=== PATIENT | male | born 1960 | race Native Hawaiian/Other Pacific Islander ===

== ENCOUNTER 2016-11-02 11:03 | Inpatient (IN) | payer OTHER | END 2016-11-22 12:32 | disposition still patient (30) | LOC: PAVC 11:03 | PROVIDERS: ADMIT Internal Medicine | DX: Z51.89 Encounter for other specified aftercare (principal) ==

== ENCOUNTER 2016-11-02 17:30 | Outpatient (CLI) | payer OTHER | END 2016-11-02 21:29 | disposition home or self-care (01) | LOC: LAB 17:30 | DX: R39.198 Other difficulties with micturition (principal) | CPT/HCPCS: 81000; 87077; 87086; 87088; 87186 ==

== ENCOUNTER 2016-11-06 15:25 | Outpatient (CLI) | payer OTHER | END 2016-11-06 22:11 | disposition home or self-care (01) | LOC: US 15:25 | DX: I63.8 Other cerebral infarction (principal) ==

== ENCOUNTER 2016-11-07 17:45 | Outpatient (CLI) | payer OTHER | END 2016-11-07 23:02 | disposition home or self-care (01) | LOC: CT 17:45 | DX: I65.22 Occlusion and stenosis of left carotid artery (principal) | CPT/HCPCS: Q9963 ==

== ENCOUNTER 2016-11-22 12:44 | Inpatient (IN) | payer OTHER | END 2016-12-20 13:19 | disposition still patient (30) | LOC: PAVC 12:44 | PROVIDERS: ADMIT Internal Medicine | DX: Z51.89 Encounter for other specified aftercare (principal) ==

== ENCOUNTER 2016-12-20 13:28 | Inpatient (IN) | payer OTHER | END 2017-01-20 08:12 | disposition still patient (30) | LOC: PAVC 13:28 | PROVIDERS: ADMIT Internal Medicine | DX: Z51.89 Encounter for other specified aftercare (principal) ==

== ENCOUNTER 2017-01-20 08:30 | Inpatient (IN) | payer OTHER | END 2017-02-19 10:55 | disposition still patient (30) | LOC: PAVC 08:30 | PROVIDERS: ADMIT Internal Medicine | DX: Z51.89 Encounter for other specified aftercare (principal) ==

== ENCOUNTER 2017-02-18 12:55 | Outpatient (CLI) | payer OTHER | END 2017-02-18 19:48 | disposition home or self-care (01) | LOC: LAB 12:55 | DX: Z16.24 Resistance to multiple antibiotics (principal) | CPT/HCPCS: 87081 ==

== ENCOUNTER 2017-02-19 11:14 | Inpatient (IN) | payer OTHER | END 2017-03-22 10:44 | disposition still patient (30) | LOC: PAVC 11:14 | PROVIDERS: ADMIT Internal Medicine | DX: Z51.89 Encounter for other specified aftercare (principal) ==

== ENCOUNTER 2017-03-22 10:51 | Inpatient (IN) | payer OTHER | END 2017-04-21 16:07 | disposition still patient (30) | LOC: PAVC 10:51 | PROVIDERS: ADMIT Internal Medicine | DX: Z51.89 Encounter for other specified aftercare (principal) ==

== ENCOUNTER 2017-04-21 16:24 | Inpatient (IN) | payer OTHER | END 2017-05-22 12:56 | disposition still patient (30) | LOC: PAVC 16:24 | PROVIDERS: ADMIT Internal Medicine | DX: Z51.89 Encounter for other specified aftercare (principal) ==

== ENCOUNTER 2017-04-23 03:18 | Outpatient (CLI) | payer OTHER ==
[2017-04-23 04:02] LABS: PLATELET COUNT 271 K/uL (142-355)
[2017-04-23 04:30] LABS: POTASSIUM 4.1 mmol/L (3.6-5.2); SODIUM 139 mmol/L (136-145)
== END 2017-04-23 04:20 | disposition home or self-care (01) ==
LOC: LAB 03:18
PROVIDERS: Internal Medicine
DX: I10 Essential (primary) hypertension (principal); E78.4 Other hyperlipidemia; I69.351 Hemiplegia and hemiparesis following cerebral infarction affecting right dominant side
CPT/HCPCS: 36415; 80053; 85027

== ENCOUNTER 2017-05-22 13:56 | Inpatient (IN) | payer OTHER | END 2017-06-22 09:41 | disposition still patient (30) | LOC: PAVC 13:56 | PROVIDERS: ADMIT Internal Medicine | DX: Z51.89 Encounter for other specified aftercare (principal) ==

== ENCOUNTER 2017-06-22 10:14 | Inpatient (IN) | payer OTHER | END 2017-07-22 09:35 | disposition still patient (30) | LOC: PAVC 10:14 | PROVIDERS: ADMIT Internal Medicine | DX: Z51.89 Encounter for other specified aftercare (principal) ==

== ENCOUNTER 2017-07-22 09:50 | Inpatient (IN) | payer OTHER | END 2017-08-22 14:18 | disposition still patient (30) | LOC: PAVC 09:50 | PROVIDERS: ADMIT Internal Medicine ==

== ENCOUNTER 2017-08-22 14:29 | Inpatient (IN) | payer OTHER | END 2017-09-21 10:28 | disposition still patient (30) | LOC: PAVC 14:29 | PROVIDERS: ADMIT Internal Medicine ==

== ENCOUNTER 2017-09-21 10:37 | Inpatient (IN) | payer OTHER | END 2017-10-22 10:55 | disposition still patient (30) | LOC: PAVC 10:37 | PROVIDERS: ADMIT Internal Medicine ==

== ENCOUNTER 2017-10-22 11:35 | Inpatient (IN) | payer OTHER | END 2017-11-22 11:11 | disposition still patient (30) | LOC: PAVC 11:35 | PROVIDERS: ADMIT Internal Medicine ==

== ENCOUNTER 2017-10-23 05:06 | Outpatient (CLI) | payer OTHER ==
[2017-10-23 06:15] LABS: PLATELET COUNT 252 K/uL (142-355)
[2017-10-23 06:39] LABS: POTASSIUM 3.6 mmol/L (3.6-5.2); SODIUM 135 mmol/L (136-145)
== END 2017-10-23 20:23 | disposition home or self-care (01) ==
LOC: LAB 05:06
PROVIDERS: Internal Medicine
DX: I10 Essential (primary) hypertension (principal); E78.4 Other hyperlipidemia; K21.9 Gastro-esophageal reflux disease without esophagitis
CPT/HCPCS: 36415; 80053; 80061; 85027

== ENCOUNTER 2017-11-22 12:19 | Inpatient (IN) | payer OTHER | END 2017-12-20 10:36 | disposition still patient (30) | LOC: PAVC 12:19 | PROVIDERS: ADMIT Internal Medicine ==

== ENCOUNTER 2017-12-20 10:46 | Inpatient (IN) | payer OTHER | END 2018-01-20 08:00 | disposition still patient (30) | LOC: PAVC 10:46 | PROVIDERS: ADMIT Internal Medicine ==

== ENCOUNTER 2018-01-20 09:00 | Inpatient (IN) | payer OTHER | END 2018-02-19 10:26 | disposition still patient (30) | LOC: PAVC 09:00 | PROVIDERS: ADMIT Internal Medicine ==

== ENCOUNTER 2018-02-19 10:37 | Inpatient (IN) | payer OTHER | END 2018-03-22 10:22 | disposition still patient (30) | LOC: PAVC 10:37 | PROVIDERS: ADMIT Internal Medicine ==

== ENCOUNTER 2018-03-22 10:40 | Inpatient (IN) | payer OTHER | END 2018-04-21 15:04 | disposition still patient (30) | LOC: PAVC 10:40 | PROVIDERS: ADMIT Internal Medicine ==

== ENCOUNTER 2018-03-22 11:15 | Outpatient (CLI) | payer OTHER | END 2018-03-22 19:26 | disposition home or self-care (01) | LOC: RAD 11:15 | DX: R13.19 Other dysphagia (principal) ==

== ENCOUNTER 2018-04-21 15:22 | Inpatient (IN) | payer OTHER | END 2018-05-22 08:00 | disposition still patient (30) | LOC: PAVC 15:22 | PROVIDERS: ADMIT Internal Medicine ==

== ENCOUNTER 2018-04-22 04:59 | Outpatient (CLI) | payer OTHER ==
[2018-04-22 06:14] LABS: PLATELET COUNT 264 K/uL (142-355)
[2018-04-22 06:28] LABS: POTASSIUM 3.8 mmol/L (3.6-5.2)
== END 2018-04-22 19:39 | disposition home or self-care (01) ==
LOC: LAB 04:59
PROVIDERS: Internal Medicine
DX: I10 Essential (primary) hypertension (principal); K21.9 Gastro-esophageal reflux disease without esophagitis
CPT/HCPCS: 36415; 80053; 85027

== ENCOUNTER 2018-05-22 09:00 | Inpatient (IN) | payer OTHER | END 2018-06-22 11:10 | disposition still patient (30) | LOC: PAVC 09:00 | PROVIDERS: ADMIT Internal Medicine ==

== ENCOUNTER 2018-06-22 11:25 | Inpatient (IN) | payer OTHER | END 2018-07-22 14:31 | disposition still patient (30) | LOC: PAVC 11:25 | PROVIDERS: ADMIT Internal Medicine ==

== ENCOUNTER 2018-07-22 15:18 | Inpatient (IN) | payer OTHER | END 2018-08-22 10:30 | disposition still patient (30) | LOC: PAVC 15:18 | PROVIDERS: ADMIT Internal Medicine ==

== ENCOUNTER 2018-08-22 11:04 | Inpatient (IN) | payer OTHER | END 2018-09-21 07:19 | disposition still patient (30) | LOC: PAVC 11:04 | PROVIDERS: ADMIT Internal Medicine ==

== ENCOUNTER 2018-09-21 07:27 | Inpatient (IN) | payer OTHER | END 2018-10-22 09:35 | disposition still patient (30) | LOC: PAVC 07:27 | PROVIDERS: ADMIT Internal Medicine ==

== ENCOUNTER 2018-10-22 09:45 | Inpatient (IN) | payer OTHER | END 2018-11-22 09:35 | disposition still patient (30) | LOC: PAVC 09:45 | PROVIDERS: ADMIT Internal Medicine ==

== ENCOUNTER 2018-10-24 04:12 | Outpatient (CLI) | payer OTHER ==
[2018-10-24 07:48] LABS: PLATELET COUNT 262 K/uL (142-355)
[2018-10-24 08:06] LABS: POTASSIUM 3.9 mmol/L (3.6-5.2)
== END 2018-10-24 22:28 | disposition home or self-care (01) ==
LOC: LAB 04:12
PROVIDERS: Internal Medicine
DX: D64.9 Anemia, unspecified (principal); E78.5 Hyperlipidemia, unspecified
CPT/HCPCS: 80053; 80061; 85027

== ENCOUNTER 2018-11-22 09:47 | Inpatient (IN) | payer OTHER | END 2018-12-20 12:10 | disposition still patient (30) | LOC: PAVC 09:47 | PROVIDERS: ADMIT Internal Medicine ==

== ENCOUNTER 2018-12-20 12:20 | Inpatient (IN) | payer OTHER | END 2019-01-20 12:28 | disposition still patient (30) | LOC: PAVC 12:20 | PROVIDERS: ADMIT Internal Medicine ==

== ENCOUNTER 2019-01-20 12:41 | Inpatient (IN) | payer OTHER | END 2019-02-19 13:41 | disposition still patient (30) | LOC: PAVC 12:41 | PROVIDERS: ADMIT Internal Medicine | CPT/HCPCS: 36415; 80053; 80061; 83735; 84100; 84153; 85027; 87070 ==

== ENCOUNTER 2019-01-20 15:40 | Outpatient (CLI) | payer OTHER ==
[2019-01-20 16:32] LABS: PLATELET COUNT 490 K/uL (142-355)
[2019-01-20 16:34] LABS: POTASSIUM 4.1 mmol/L (3.6-5.2)
== END 2019-01-20 20:31 | disposition home or self-care (01) ==
LOC: LAB 15:40
PROVIDERS: Internal Medicine
DX: Z01.818 Encounter for other preprocedural examination (principal); E46 Unspecified protein-calorie malnutrition
CPT/HCPCS: 80053; 85027

== ENCOUNTER 2019-01-21 16:00 | Inpatient (IN) | payer OTHER ==
[~2019-01-21] VITALS: Ht 175.3 cm; Wt 63.2 kg
[2019-01-21] VITALS (7 sets, daily range): BP systolic 101–130; BP diastolic 64–81; TEMP 98–98.6; Ht 175.3 cm; Wt 63.2 kg
[2019-01-21 19:41] LABS: PLATELET COUNT 452 K/uL (142-355)
[2019-01-22] VITALS (24 sets, daily range): BP systolic 99–130; BP diastolic 56–84; TEMP 98–99.8
[2019-01-22 06:54] LABS: POTASSIUM 3.6 mmol/L (3.6-5.2)
[2019-01-22 08:24] LABS: PLATELET COUNT 451 K/uL (142-355)
[2019-01-23] VITALS (17 sets, daily range): BP systolic 96–128; BP diastolic 60–79; TEMP 97.5–99.8
[2019-01-23 06:51] LABS: PLATELET COUNT 443 K/uL (142-355)
[2019-01-23 07:13] LABS: POTASSIUM 3.7 mmol/L (3.6-5.2)
[2019-01-24] VITALS: BP 116/66; TEMP 98.2
[2019-01-24 04:00] VITALS: BP 93/58; TEMP 97.8
[2019-01-24 08:00] VITALS: BP 121/71; TEMP 98
[2019-01-24 08:51] LABS: PLATELET COUNT 399 K/uL (142-355)
[2019-01-24 09:07] LABS: POTASSIUM 3.8 mmol/L (3.6-5.2)
== END 2019-01-24 11:30 | disposition home or self-care (01) | DRG 178 ==
LOC: ICU 16:00 → MED/SURG 01-23 15:25 → ICU 01-23 15:25 → MED/SURG 01-23 15:25
PROVIDERS: ADMIT Internal Medicine
DX: J69.0 Pneumonitis due to inhalation of food and vomit (principal); I69.351 Hemiplegia and hemiparesis following cerebral infarction affecting right dominant side; R47.1 Dysarthria and anarthria; I10 Essential (primary) hypertension; K21.9 Gastro-esophageal reflux disease without esophagitis; K44.9 Diaphragmatic hernia without obstruction or gangrene; R13.19 Other dysphagia
CPT/HCPCS: 36415; 80048; 80053; 81000; 83605; 83735; 84100; 84478; 85027; 87040; 87077; 87086; 87088; 87186; 93005; 94640; 94664; 94760; J2185; J2543; J3490

== ENCOUNTER → 2019-01-21 | Day surgery (SDC) | payer OTHER ==
[~2019-01-21] VITALS: Ht 30.5 cm; Wt 0.5 kg
== END ==
LOC: OR 07:00
PROC: 0DH63UZ Insertion of Feeding Device into Stomach, Percutaneous Approach (ICD-10-PCS; principal; 2019-01-21)
DX: R13.19 Other dysphagia (principal); I69.391 Dysphagia following cerebral infarction; T17.918A Gastric contents in respiratory tract, part unspecified causing other injury, initial encounter; K44.9 Diaphragmatic hernia without obstruction or gangrene; E46 Unspecified protein-calorie malnutrition; I69.351 Hemiplegia and hemiparesis following cerebral infarction affecting right dominant side
CPT/HCPCS: J2001; J2704; J3490

== ENCOUNTER 2019-01-25 10:41 | Outpatient (CLI) | payer OTHER ==
[2019-01-25 10:53] LABS: PLATELET COUNT 420 K/uL (142-355)
[2019-01-25 11:01] LABS: POTASSIUM 4.5 mmol/L (3.6-5.2)
== END 2019-01-25 19:18 | disposition home or self-care (01) ==
LOC: LAB 10:41
PROVIDERS: Internal Medicine
DX: I69.351 Hemiplegia and hemiparesis following cerebral infarction affecting right dominant side (principal)
CPT/HCPCS: 80053; 83735; 84100; 85027

== ENCOUNTER → 2019-01-27 | Day surgery (SDC) | payer OTHER ==
[2019-01-27 15:50] LABS: PLATELET COUNT 431 K/uL (142-355)
[2019-01-27 16:11] LABS: POTASSIUM 4.3 mmol/L (3.6-5.2)
== END ==
LOC: OR 11:12
PROVIDERS: Internal Medicine
PROC: 02HV33Z Insertion of Infusion Device into Superior Vena Cava, Percutaneous Approach (ICD-10-PCS; principal; 2019-01-27)
DX: R13.19 Other dysphagia (principal); E46 Unspecified protein-calorie malnutrition
CPT/HCPCS: 80053; 80061; 83735; 84100; 85027

== ENCOUNTER 2019-01-28 07:58 | Outpatient (CLI) | payer OTHER ==
[2019-01-28 08:08] LABS: PLATELET COUNT 451 K/uL (142-355)
[2019-01-28 08:34] LABS: POTASSIUM 4.7 mmol/L (3.6-5.2)
== END 2019-01-28 23:17 | disposition home or self-care (01) ==
LOC: LAB 07:58
PROVIDERS: Internal Medicine
DX: R06.09 Other forms of dyspnea (principal); E46 Unspecified protein-calorie malnutrition; Z79.899 Other long term (current) drug therapy
CPT/HCPCS: 80053; 80061; 83735; 84100; 85027

== ENCOUNTER 2019-01-28 13:53 | Outpatient (CLI) | payer OTHER | END 2019-01-28 23:22 | disposition home or self-care (01) | LOC: RAD 13:53 | DX: K63.89 Other specified diseases of intestine (principal) ==

== ENCOUNTER 2019-01-29 08:15 | Outpatient (CLI) | payer OTHER ==
[2019-01-29 08:25] LABS: PLATELET COUNT 504 K/uL (142-355)
[2019-01-29 08:42] LABS: POTASSIUM 4.4 mmol/L (3.6-5.2)
== END 2019-01-29 20:37 | disposition home or self-care (01) ==
LOC: LAB 08:15
PROVIDERS: Internal Medicine
DX: E46 Unspecified protein-calorie malnutrition (principal); R06.09 Other forms of dyspnea; Z79.899 Other long term (current) drug therapy
CPT/HCPCS: 36415; 80053; 80061; 83735; 84100; 85027

== ENCOUNTER 2019-01-31 04:20 | Outpatient (CLI) | payer OTHER ==
[2019-01-31 04:45] LABS: PLATELET COUNT 343 K/uL (142-355)
[2019-01-31 12:22] LABS: POTASSIUM 4.6 mmol/L (3.6-5.2)
== END 2019-01-31 19:46 | disposition home or self-care (01) ==
LOC: LAB 04:20
PROVIDERS: Internal Medicine
DX: E46 Unspecified protein-calorie malnutrition (principal); R06.09 Other forms of dyspnea; Z79.899 Other long term (current) drug therapy; Z12.5 Encounter for screening for malignant neoplasm of prostate
CPT/HCPCS: 80053; 80061; 83735; 84100; 84153; 85027

== ENCOUNTER 2019-02-01 05:11 | Outpatient (CLI) | payer OTHER ==
[2019-02-01 05:23] LABS: PLATELET COUNT 469 K/uL (142-355)
[2019-02-01 05:56] LABS: POTASSIUM 4.9 mmol/L (3.6-5.2)
== END 2019-02-01 19:35 | disposition home or self-care (01) ==
LOC: LAB 05:11
PROVIDERS: Internal Medicine
DX: E46 Unspecified protein-calorie malnutrition (principal); R06.09 Other forms of dyspnea; Z79.899 Other long term (current) drug therapy
CPT/HCPCS: 36415; 80053; 80061; 83735; 84100; 85027

== ENCOUNTER 2019-02-02 05:34 | Outpatient (CLI) | payer OTHER ==
[2019-02-02 05:53] LABS: PLATELET COUNT 561 K/uL (142-355)
[2019-02-02 06:08] LABS: POTASSIUM 4.2 mmol/L (3.6-5.2)
== END 2019-02-02 20:45 | disposition home or self-care (01) ==
LOC: LAB 05:34
PROVIDERS: Internal Medicine
DX: E46 Unspecified protein-calorie malnutrition (principal); R06.09 Other forms of dyspnea; Z79.899 Other long term (current) drug therapy
CPT/HCPCS: 80053; 80061; 83735; 84100; 85027

== ENCOUNTER → 2019-02-03 | Outpatient (CLI) | payer OTHER ==
[2019-02-03 05:55] LABS: PLATELET COUNT 474 K/uL (142-355)
[2019-02-03 06:22] LABS: POTASSIUM 4.2 mmol/L (3.6-5.2)
== END ==
LOC: LAB 04:22
PROVIDERS: Internal Medicine
DX: E46 Unspecified protein-calorie malnutrition (principal); R06.09 Other forms of dyspnea; Z79.899 Other long term (current) drug therapy
CPT/HCPCS: 36415; 80053; 80061; 83735; 84100; 85027

== ENCOUNTER 2019-02-04 04:25 | Outpatient (CLI) | payer OTHER ==
[2019-02-04 05:43] LABS: PLATELET COUNT 480 K/uL (142-355)
[2019-02-04 05:57] LABS: POTASSIUM 3.9 mmol/L (3.6-5.2)
== END 2019-02-04 22:43 | disposition home or self-care (01) ==
LOC: LAB 04:25
PROVIDERS: Internal Medicine
DX: E46 Unspecified protein-calorie malnutrition (principal); R06.09 Other forms of dyspnea; Z79.899 Other long term (current) drug therapy
CPT/HCPCS: 36415; 80053; 80061; 83735; 84100; 85027

== ENCOUNTER 2019-02-04 09:29 | Day surgery (SDC) | payer OTHER | END 2019-02-04 11:36 | LOC: OR 09:29 | PROC: 0DH63UZ Insertion of Feeding Device into Stomach, Percutaneous Approach (ICD-10-PCS; principal; 2019-02-04) | DX: R13.19 Other dysphagia (principal); I69.351 Hemiplegia and hemiparesis following cerebral infarction affecting right dominant side | CPT/HCPCS: J1642; J2001; J2704 ==

== ENCOUNTER 2019-02-10 15:39 | Outpatient (CLI) | payer OTHER | END 2019-02-10 19:43 | disposition home or self-care (01) | LOC: LAB 15:39 | DX: T82.7XXA Infection and inflammatory reaction due to other cardiac and vascular devices, implants and grafts, initial encounter (principal) | CPT/HCPCS: 87070 ==

== ENCOUNTER 2019-02-19 13:54 | Inpatient (IN) | payer OTHER | END 2019-03-22 09:38 | disposition still patient (30) | LOC: PAVC 13:54 | PROVIDERS: ADMIT Internal Medicine | DX: J69.0 Pneumonitis due to inhalation of food and vomit (principal); R13.12 Dysphagia, oropharyngeal phase; I63.442 Cerebral infarction due to embolism of left cerebellar artery; E46 Unspecified protein-calorie malnutrition; I10 Essential (primary) hypertension; I69.922 Dysarthria following unspecified cerebrovascular disease ==

== ENCOUNTER 2019-03-22 09:56 | Inpatient (IN) | payer OTHER | END 2019-04-21 11:34 | disposition still patient (30) | LOC: PAVC 09:56 | PROVIDERS: ADMIT Internal Medicine ==

== ENCOUNTER 2019-04-21 11:57 | Inpatient (IN) | payer OTHER | END 2019-05-22 11:52 | disposition still patient (30) | LOC: PAVC 11:57 | PROVIDERS: ADMIT Internal Medicine ==

== ENCOUNTER 2019-04-25 04:36 | Outpatient (CLI) | payer OTHER ==
[2019-04-25 05:56] LABS: PLATELET COUNT 269 K/uL (142-355)
[2019-04-25 06:07] LABS: POTASSIUM 4.2 mmol/L (3.6-5.2)
== END 2019-04-25 20:39 | disposition home or self-care (01) ==
LOC: LAB 04:36
PROVIDERS: Internal Medicine
DX: E78.2 Mixed hyperlipidemia (principal); K21.9 Gastro-esophageal reflux disease without esophagitis; I10 Essential (primary) hypertension
CPT/HCPCS: 80053; 85027

== ENCOUNTER 2019-05-01 14:23 | Outpatient (CLI) | payer OTHER | END 2019-05-01 23:50 | disposition home or self-care (01) | LOC: RAD 14:23 | DX: J98.8 Other specified respiratory disorders (principal) ==

== ENCOUNTER 2019-05-22 12:58 | Inpatient (IN) | payer OTHER | END 2019-06-22 17:15 | disposition still patient (30) | LOC: PAVC 12:58 | PROVIDERS: ADMIT Internal Medicine ==

== ENCOUNTER 2019-05-27 19:52 | Outpatient (CLI) | payer OTHER | END 2019-05-27 23:21 | disposition home or self-care (01) | LOC: LAB 19:52 | DX: N39.0 Urinary tract infection, site not specified (principal) | CPT/HCPCS: 81000; 87077; 87086; 87088; 87186 ==

== ENCOUNTER 2019-06-05 16:11 | Outpatient (CLI) | payer OTHER | END 2019-06-05 23:59 | LOC: RAD 16:11 | DX: R09.02 Hypoxemia (principal) ==

== ENCOUNTER 2019-06-10 13:42 | Outpatient (CLI) | payer OTHER | END 2019-06-10 23:59 | LOC: LAB 13:42 | DX: N39.0 Urinary tract infection, site not specified (principal); Z79.2 Long term (current) use of antibiotics | CPT/HCPCS: 81000; 87077; 87086; 87088; 87186 ==

== ENCOUNTER 2019-06-22 17:32 | Inpatient (IN) | payer OTHER | END 2019-07-22 12:55 | disposition still patient (30) | LOC: PAVC 17:32 | PROVIDERS: ADMIT Internal Medicine ==

== ENCOUNTER 2019-07-10 15:21 | Outpatient (CLI) | payer OTHER | END 2019-07-10 19:55 | disposition home or self-care (01) | LOC: LAB 15:21 | DX: R82.998 Other abnormal findings in urine (principal); N39.0 Urinary tract infection, site not specified | CPT/HCPCS: 81000; 87077; 87086; 87088; 87186 ==

== ENCOUNTER 2019-07-22 13:21 | Inpatient (IN) | payer OTHER ==
[2019-08-13] MEDS ORDERED: MULTIVITAMI1 PEG (13:09)
[2019-08-13] MEDS ORDERED: VITAMIN C1000 MG PEG (13:09)
[2019-08-13] MEDS ORDERED: ALLEGRA ALRG180 M1 PEG (13:11)
[2019-08-13] MEDS ORDERED: SCOP1.5D TD (13:12)
[2019-08-13] MEDS ORDERED: TYLENOL325 MG PEG (13:14)
[2019-08-13] MEDS ORDERED: ONDA2INJ2 IM (13:15)
[2019-08-13] MEDS ORDERED: ALBUSOL INH (13:16)
== END 2019-08-22 14:04 | disposition still patient (30) ==
LOC: PAVC 13:21
PROVIDERS: ADMIT Internal Medicine
DX: J18.0 Bronchopneumonia, unspecified organism (principal); I69.359 Hemiplegia and hemiparesis following cerebral infarction affecting unspecified side; R13.12 Dysphagia, oropharyngeal phase; Z93.1 Gastrostomy status; I10 Essential (primary) hypertension; M12.9 Arthropathy, unspecified; K21.9 Gastro-esophageal reflux disease without esophagitis
CPT/HCPCS: 36415; 80202; 83880

== ENCOUNTER 2019-08-08 14:36 | Outpatient (CLI) | payer OTHER | END 2019-08-08 21:31 | disposition home or self-care (01) | LOC: RAD 14:36 | DX: R05 Cough (principal); R50.9 Fever, unspecified ==

== ENCOUNTER 2019-08-12 15:25 | Outpatient (CLI) | payer OTHER ==
[2019-08-13] MEDS ORDERED: VITAMIN C1000 MG PEG (13:09)
[2019-08-13] MEDS ORDERED: MULTIVITAMI1 PEG (13:09)
[2019-08-13] MEDS ORDERED: ALLEGRA ALRG180 M1 PEG (13:11)
[2019-08-13] MEDS ORDERED: SCOP1.5D TD (13:12)
[2019-08-13] MEDS ORDERED: TYLENOL325 MG PEG (13:14)
[2019-08-13] MEDS ORDERED: ONDA2INJ2 IM (13:15)
[2019-08-13] MEDS ORDERED: ALBUSOL INH (13:16)
== END 2019-08-12 19:04 | disposition home or self-care (01) ==
LOC: RAD 15:25
DX: R05 Cough (principal)

== ENCOUNTER 2019-08-13 12:02 | Inpatient (IN) | payer OTHER ==
[~2019-08-13] VITALS: Ht 180.3 cm; Wt 65.3 kg
[2019-08-13 12:49] VITALS: BP 103/64; TEMP 97.7; Ht 180.3 cm; Wt 65.3 kg
[2019-08-13] MEDS ORDERED: MULTIVITAMI1 PEG (13:09)
[2019-08-13] MEDS ORDERED: VITAMIN C1000 MG PEG (13:09)
[2019-08-13] MEDS ORDERED: ALLEGRA ALRG180 M1 PEG (13:11)
[2019-08-13] MEDS ORDERED: SCOP1.5D TD (13:12)
[2019-08-13 13:13] LABS: PLATELET COUNT 319 K/uL (142-355)
[2019-08-13] MEDS ORDERED: TYLENOL325 MG PEG (13:14)
[2019-08-13] MEDS ORDERED: ONDA2INJ2 IM (13:15)
[2019-08-13] MEDS ORDERED: ALBUSOL INH (13:16)
[2019-08-13 13:29] LABS: POTASSIUM 4.2 mmol/L (3.6-5.2)
[2019-08-13 16:00] VITALS: BP 112/70; TEMP 98.1
[2019-08-13 19:46] VITALS: BP 114/68; TEMP 97.4
[2019-08-14] VITALS: BP 104/64; TEMP 97.6
[2019-08-14 04:00] VITALS: BP 94/55; TEMP 97.9
[2019-08-14 08:09] VITALS: BP 91/58; TEMP 98
[2019-08-14 12:00] VITALS: BP 99/61; TEMP 98.2
[2019-08-14 16:01] VITALS: BP 110/79; TEMP 97.4
[2019-08-14 20:00] VITALS: BP 131/75; TEMP 98.6
[2019-08-15] VITALS: BP 139/91; TEMP 98.1
[2019-08-15 04:00] VITALS: BP 117/69; TEMP 98.8
[2019-08-15 08:00] VITALS: BP 119/68; TEMP 98
[2019-08-15 12:00] VITALS: BP 130/76; TEMP 98.1
[2019-08-15 16:00] VITALS: BP 139/79; TEMP 97.6
[2019-08-15 20:00] VITALS: BP 147/89; TEMP 97.5
[2019-08-16] VITALS: BP 116/76; TEMP 98
[2019-08-16 04:00] VITALS: BP 152/85; TEMP 98.1
[2019-08-16 04:58] LABS: PLATELET COUNT 370 K/uL (142-355)
[2019-08-16 08:00] VITALS: BP 128/84; TEMP 98.7
[2019-08-16 12:00] VITALS: BP 129/71; TEMP 98.6
== END 2019-08-16 14:20 | DRG 194 ==
LOC: MED/SURG 12:02
PROVIDERS: ADMIT Internal Medicine
DX: J18.8 Other pneumonia, unspecified organism (principal); I69.151 Hemiplegia and hemiparesis following nontraumatic intracerebral hemorrhage affecting right dominant side; I10 Essential (primary) hypertension; K21.9 Gastro-esophageal reflux disease without esophagitis; E78.49 Other hyperlipidemia; I69.191 Dysphagia following nontraumatic intracerebral hemorrhage; R13.12 Dysphagia, oropharyngeal phase; Y95 Nosocomial condition; R05 Cough
CPT/HCPCS: 80053; 80202; 85027; 87040; 87899; 94640; 94664; 94760; J2543; J2930; J3370

== ENCOUNTER 2019-08-20 03:50 | Outpatient (CLI) | payer OTHER ==
[~2019-08-20 03:50] MED LIST: ALBUSOL INH; ALLEGRA ALRG180 M1 PEG; MULTIVITAMI1 PEG; ONDA2INJ2 IM; SCOP1.5D TD; TYLENOL325 MG PEG; VITAMIN C1000 MG PEG
== END 2019-08-20 19:36 | disposition home or self-care (01) ==
LOC: LAB 03:50
DX: Z51.81 Encounter for therapeutic drug level monitoring (principal)

== ENCOUNTER 2019-08-22 14:23 | Inpatient (IN) | payer OTHER | END 2019-09-21 08:00 | disposition still patient (30) | LOC: PAVC 14:23 | PROVIDERS: ADMIT Internal Medicine | DX: J18.0 Bronchopneumonia, unspecified organism (principal); I69.359 Hemiplegia and hemiparesis following cerebral infarction affecting unspecified side; R13.12 Dysphagia, oropharyngeal phase; Z93.1 Gastrostomy status; I10 Essential (primary) hypertension; M12.9 Arthropathy, unspecified; K21.9 Gastro-esophageal reflux disease without esophagitis ==

== ENCOUNTER 2019-08-23 04:11 | Outpatient (CLI) | payer OTHER | END 2019-08-23 19:25 | disposition home or self-care (01) | LOC: LAB 04:11 | DX: Z51.81 Encounter for therapeutic drug level monitoring (principal) | CPT/HCPCS: 83880 ==

== ENCOUNTER 2019-09-21 11:00 | Inpatient (IN) | payer OTHER | END 2019-10-22 09:33 | disposition still patient (30) | LOC: PAVC 11:00 | PROVIDERS: ADMIT Internal Medicine ==

== ENCOUNTER 2019-10-22 09:38 | Inpatient (IN) | payer OTHER | END 2019-11-22 10:48 | disposition still patient (30) | LOC: PAVC 09:38 | PROVIDERS: ADMIT Internal Medicine ==

== ENCOUNTER 2019-10-24 04:58 | Outpatient (CLI) | payer OTHER ==
[2019-10-24 06:35] LABS: PLATELET COUNT 276 K/uL (142-355)
[2019-10-24 07:17] LABS: POTASSIUM 4.4 mmol/L (3.6-5.2)
== END 2019-10-24 19:07 | disposition home or self-care (01) ==
LOC: LAB 04:58
PROVIDERS: Internal Medicine
DX: K21.9 Gastro-esophageal reflux disease without esophagitis (principal); I10 Essential (primary) hypertension
CPT/HCPCS: 80053; 80061; 85027

== ENCOUNTER 2019-11-22 10:54 | Inpatient (IN) | payer OTHER | END 2019-12-21 14:10 | disposition still patient (30) | LOC: PAVC 10:54 | PROVIDERS: ADMIT Internal Medicine ==

== ENCOUNTER 2019-12-21 14:37 | Inpatient (IN) | payer OTHER | END 2020-01-21 11:43 | disposition still patient (30) | LOC: PAVC 14:37 | PROVIDERS: ADMIT Internal Medicine ==

== ENCOUNTER 2019-12-28 00:56 | Outpatient (CLI) | payer OTHER ==
[2019-12-28 01:17] LABS: PLATELET COUNT 260 K/uL (142-355)
== END 2019-12-28 19:15 | disposition home or self-care (01) ==
LOC: LAB 00:56
PROVIDERS: Internal Medicine
DX: R19.8 Other specified symptoms and signs involving the digestive system and abdomen (principal)
CPT/HCPCS: 80053; 85027

== ENCOUNTER 2019-12-29 08:32 | Day surgery (SDC) | payer OTHER ==
[~2019-12-29] VITALS: Ht 30.5 cm; Wt 0.9 kg
== END 2019-12-29 11:37 ==
LOC: OR 08:32
PROC: 0DH63UZ Insertion of Feeding Device into Stomach, Percutaneous Approach (ICD-10-PCS; principal; 2019-12-29)
DX: K94.23 Gastrostomy malfunction (principal); R13.19 Other dysphagia; K44.9 Diaphragmatic hernia without obstruction or gangrene; R05 Cough
CPT/HCPCS: 94664; J2001; J2704; J3490

== ENCOUNTER 2020-01-21 12:08 | Inpatient (IN) | payer OTHER ==
[2020-02-03] MEDS ORDERED: PANTOPRAZOLE 40MG TA PO (04:30)
[2020-02-03] MEDS ORDERED: VITAMIN C250 M2 PO (04:32)
[2020-02-03] MEDS ORDERED: ALLEGRA ALRG180 M1 PO (04:33)
[2020-02-03] MEDS ORDERED: ASA LOW DOSE81 MG PO (04:35)
[2020-02-03] MEDS ORDERED: AZO CRANBERY UR1 CAP PO (04:37)
[2020-02-03] MEDS ORDERED: DULO60CA2 PEG (04:39)
[2020-02-03] MEDS ORDERED: CLARINEX5 MG PEG (04:40)
[2020-02-03] MEDS ORDERED: DOCU100C10 PEG (04:42)
[2020-02-03] MEDS ORDERED: LISITAB PO (04:46)
[2020-02-03] MEDS ORDERED: SIMV40TA57 (04:48)
[2020-02-03] MEDS ORDERED: CLARITIN10 MG PO (04:49)
== END 2020-02-20 11:22 | disposition still patient (30) ==
LOC: PAVC 12:08
PROVIDERS: ADMIT Internal Medicine

== ENCOUNTER 2020-02-02 18:05 | Outpatient (CLI) | payer OTHER ==
[2020-02-03] MEDS ORDERED: PANTOPRAZOLE 40MG TA PO (04:30)
[2020-02-03] MEDS ORDERED: VITAMIN C250 M2 PO (04:32)
[2020-02-03] MEDS ORDERED: ALLEGRA ALRG180 M1 PO (04:33)
[2020-02-03] MEDS ORDERED: ASA LOW DOSE81 MG PO (04:35)
[2020-02-03] MEDS ORDERED: AZO CRANBERY UR1 CAP PO (04:37)
[2020-02-03] MEDS ORDERED: DULO60CA2 PEG (04:39)
[2020-02-03] MEDS ORDERED: CLARINEX5 MG PEG (04:40)
[2020-02-03] MEDS ORDERED: DOCU100C10 PEG (04:42)
[2020-02-03] MEDS ORDERED: LISITAB PO (04:46)
[2020-02-03] MEDS ORDERED: SIMV40TA57 (04:48)
[2020-02-03] MEDS ORDERED: CLARITIN10 MG PO (04:49)
== END 2020-02-02 22:59 | disposition home or self-care (01) ==
LOC: LAB 18:05
DX: R82.998 Other abnormal findings in urine (principal); R50.9 Fever, unspecified
CPT/HCPCS: 81000; 87086; 87088

== ENCOUNTER 2020-02-02 23:08 | Inpatient (IN) | payer OTHER ==
[~2020-02-02] VITALS: Ht 177.8 cm; Wt 65.8 kg
[2020-02-02 23:09] VITALS: BP 163/84; TEMP 104.9
[2020-02-02 23:45] VITALS: BP 163/79
[2020-02-03] VITALS (9 sets, daily range): BP systolic 111–175; BP diastolic 61–86; TEMP 97.8–99.2; Ht 177.8 cm; Wt 65.8 kg
[2020-02-03 00:09] LABS: PLATELET COUNT 352 K/uL (142-355)
[2020-02-03] MEDS ORDERED: PANTOPRAZOLE 40MG TA PO (04:30)
[2020-02-03] MEDS ORDERED: VITAMIN C250 M2 PO (04:32)
[2020-02-03] MEDS ORDERED: ALLEGRA ALRG180 M1 PO (04:33)
[2020-02-03] MEDS ORDERED: ASA LOW DOSE81 MG PO (04:35)
[2020-02-03] MEDS ORDERED: AZO CRANBERY UR1 CAP PO (04:37)
[2020-02-03] MEDS ORDERED: DULO60CA2 PEG (04:39)
[2020-02-03] MEDS ORDERED: CLARINEX5 MG PEG (04:40)
[2020-02-03] MEDS ORDERED: DOCU100C10 PEG (04:42)
[2020-02-03] MEDS ORDERED: LISITAB PO (04:46)
[2020-02-03] MEDS ORDERED: SIMV40TA57 (04:48)
[2020-02-03] MEDS ORDERED: CLARITIN10 MG PO (04:49)
[2020-02-04] VITALS: BP 128/72; TEMP 98.9
[2020-02-04 04:00] VITALS: BP 115/79; TEMP 99.1
[2020-02-04 08:00] VITALS: BP 146/80; TEMP 100.3
[2020-02-04 12:00] VITALS: BP 154/83; TEMP 100.6
[2020-02-04 16:00] VITALS: BP 157/87; TEMP 100.1
[2020-02-04 20:00] VITALS: BP 120/75; TEMP 99.7
[2020-02-05] VITALS: BP 114/67; TEMP 99.7
[2020-02-05 04:00] VITALS: BP 122/68; TEMP 99.3
[2020-02-05 06:39] LABS: PLATELET COUNT 205 K/uL (142-355)
[2020-02-05 06:54] LABS: POTASSIUM 3.9 mmol/L (3.6-5.2)
[2020-02-05 08:00] VITALS: BP 123/71; TEMP 97.3
[2020-02-05 12:00] VITALS: BP 148/67; TEMP 98.3
[2020-02-05 16:00] VITALS: BP 106/64; TEMP 98.4
[2020-02-05 20:00] VITALS: BP 114/70; TEMP 99
[2020-02-06] VITALS: BP 117/80; TEMP 99
[2020-02-06 03:49] VITALS: BP 134/72; TEMP 98.2
[2020-02-06 05:38] LABS: PLATELET COUNT 196 K/uL (142-355)
[2020-02-06 05:43] LABS: POTASSIUM 3.9 mmol/L (3.6-5.2)
[2020-02-06 08:00] VITALS: BP 127/73; TEMP 97.3
[2020-02-06 12:00] VITALS: BP 122/70; TEMP 97
== END 2020-02-06 13:00 | DRG 189 ==
LOC: ED 23:08 → MED/SURG 02-03 01:20
PROVIDERS: Family Medicine; ADMIT Internal Medicine
DX: J96.01 Acute respiratory failure with hypoxia (principal); N39.0 Urinary tract infection, site not specified; I69.351 Hemiplegia and hemiparesis following cerebral infarction affecting right dominant side; J09.X2 Influenza due to identified novel influenza A virus with other respiratory manifestations; I10 Essential (primary) hypertension; E78.49 Other hyperlipidemia; K21.9 Gastro-esophageal reflux disease without esophagitis; I69.321 Dysphasia following cerebral infarction; I69.322 Dysarthria following cerebral infarction; B97.29 Other coronavirus as the cause of diseases classified elsewhere; Z93.1 Gastrostomy status
CPT/HCPCS: 36600; 80053; 82805; 85007; 85027; 85379; 87502; 87635; 87651; 93005; 94760; 96360; 96375; 99284; G2023; J0132; J0696; U0002

== ENCOUNTER 2020-02-20 11:53 | Inpatient (IN) | payer OTHER ==
[~2020-02-20 11:53] MED LIST changes: +ALLEGRA ALRG180 M1 PO; +ASA LOW DOSE81 MG PO; +AZO CRANBERY UR1 CAP PO; +CLARINEX5 MG PEG; +CLARITIN10 MG PO; +DOCU100C10 PEG; +DULO60CA2 PEG; +LISITAB PO; +PANTOPRAZOLE 40MG TA PO; +SIMV40TA57; +VITAMIN C250 M2 PO
[2020-03-03] MEDS ORDERED: LIPITOR40 MG PO (15:17)
[2020-03-03] MEDS ORDERED: ZINC220 MG PEG (15:21)
[2020-03-03] MEDS ORDERED: IPRAAER INH (15:25)
[2020-03-03] MEDS ORDERED: MIRALAX3350 N1 (15:28)
[2020-03-03] MEDS ORDERED: ONDA4TAB3 PEG (15:33)
[2020-03-03] MEDS ORDERED: KETO2SHA7 TOP (15:36)
[2020-03-16] MEDS ORDERED: GUAI200S10 PO (13:07)
[2020-03-16] MEDS ORDERED: [UNRECOGNIZED DRUG - CODE] PO (13:08)
[2020-03-16] MEDS ORDERED: SCOP1.5D TOP (13:09)
== END 2020-03-22 11:21 | disposition still patient (30) ==
LOC: PAVC 11:53
PROVIDERS: ADMIT Internal Medicine

== ENCOUNTER 2020-03-03 09:30 | Outpatient (CLI) | payer OTHER ==
[2020-03-03 10:26] LABS: PLATELET COUNT 244 K/uL (142-355)
[2020-03-03 10:34] LABS: POTASSIUM 4.1 mmol/L (3.6-5.2)
[2020-03-03] MEDS ORDERED: LIPITOR40 MG PO (15:17)
[2020-03-03] MEDS ORDERED: ZINC220 MG PEG (15:21)
[2020-03-03] MEDS ORDERED: IPRAAER INH (15:25)
[2020-03-03] MEDS ORDERED: MIRALAX3350 N1 (15:28)
[2020-03-03] MEDS ORDERED: ONDA4TAB3 PEG (15:33)
[2020-03-03] MEDS ORDERED: KETO2SHA7 TOP (15:36)
== END 2020-03-03 22:22 | disposition home or self-care (01) ==
LOC: LAB 09:30 → RAD 09:30 → LAB 22:22
PROVIDERS: Internal Medicine
DX: U07.1 COVID-19 (principal); Z79.899 Other long term (current) drug therapy
CPT/HCPCS: 80053; 81000; 85027; 85379; 87086; 87088

== ENCOUNTER 2020-03-03 11:06 | Inpatient (IN) | payer OTHER ==
[2020-03-03] VITALS (13 sets, daily range): BP systolic 104–152; BP diastolic 52–83; TEMP 99.7–101.7; Ht 175.3 cm; Wt 62.3 kg
[~2020-03-03] VITALS: Ht 175.3 cm; Wt 62.3 kg
[2020-03-03] MEDS ORDERED: LIPITOR40 MG PO (15:17)
[2020-03-03] MEDS ORDERED: ZINC220 MG PEG (15:21)
[2020-03-03] MEDS ORDERED: IPRAAER INH (15:25)
[2020-03-03] MEDS ORDERED: MIRALAX3350 N1 (15:28)
[2020-03-03] MEDS ORDERED: ONDA4TAB3 PEG (15:33)
[2020-03-03] MEDS ORDERED: KETO2SHA7 TOP (15:36)
[2020-03-04] VITALS (21 sets, daily range): BP systolic 98–162; BP diastolic 55–685; TEMP 97.7–99.1
[2020-03-04 08:29] LABS: PLATELET COUNT 265 K/uL (142-355)
[2020-03-04 08:35] LABS: POTASSIUM 3.8 mmol/L (3.6-5.2)
[2020-03-05] VITALS (24 sets, daily range): BP systolic 95–152; BP diastolic 45–79; TEMP 97.3–98.6
[2020-03-05 05:41] LABS: POTASSIUM 3.5 mmol/L (3.6-5.2)
[2020-03-05 05:48] LABS: PLATELET COUNT 236 K/uL (142-355)
[2020-03-06] VITALS (23 sets, daily range): BP systolic 116–164; BP diastolic 46–88; TEMP 97.9–98.6
[2020-03-06 05:22] LABS: PLATELET COUNT 271 K/uL (142-355)
[2020-03-06 05:29] LABS: POTASSIUM 3.6 mmol/L (3.6-5.2)
[2020-03-07] VITALS (24 sets, daily range): BP systolic 131–183; BP diastolic 63–90; TEMP 98.1–99.8
[2020-03-08] VITALS (24 sets, daily range): BP systolic 127–184; BP diastolic 57–101; TEMP 97.8–99.1
[2020-03-09] VITALS (23 sets, daily range): BP systolic 124–171; BP diastolic 34–100; TEMP 97.4–98.7
[2020-03-09 06:25] LABS: PLATELET COUNT 322 K/uL (142-355)
[2020-03-09 06:38] LABS: POTASSIUM 4.3 mmol/L (3.6-5.2)
[2020-03-10] VITALS (24 sets, daily range): BP systolic 113–168; BP diastolic 56–96; TEMP 97.7–98.4
[2020-03-10 05:52] LABS: PLATELET COUNT 330 K/uL (142-355)
[2020-03-11] VITALS (24 sets, daily range): BP systolic 120–151; BP diastolic 55–85; TEMP 97–98.3
[2020-03-11 05:10] LABS: POTASSIUM 4.1 mmol/L (3.6-5.2)
[2020-03-11 05:11] LABS: PLATELET COUNT 342 K/uL (142-355)
[2020-03-12] VITALS (24 sets, daily range): BP systolic 120–148; BP diastolic 42–75; TEMP 97–9704
[2020-03-12 06:01] LABS: PLATELET COUNT 351 K/uL (142-355)
[2020-03-13] VITALS (25 sets, daily range): BP systolic 124–163; BP diastolic 59–85; TEMP 97.6–98.8
[2020-03-13 05:23] LABS: PLATELET COUNT 343 K/uL (142-355)
[2020-03-14] VITALS (22 sets, daily range): BP systolic 116–158; BP diastolic 48–82; TEMP 97.5–99.6
[2020-03-14 05:41] LABS: PLATELET COUNT 313 K/uL (142-355)
[2020-03-15] VITALS (24 sets, daily range): BP systolic 109–172; BP diastolic 50–99; TEMP 97.4–98.5
[2020-03-15 05:35] LABS: PLATELET COUNT 331 K/uL (142-355)
[2020-03-15 05:50] LABS: POTASSIUM 4.1 mmol/L (3.6-5.2)
[2020-03-16] VITALS (16 sets, daily range): BP systolic 104–168; BP diastolic 50–89; TEMP 97.7–99
[2020-03-16 06:14] LABS: PLATELET COUNT 332 K/uL (142-355)
[2020-03-16 06:25] LABS: POTASSIUM 3.7 mmol/L (3.6-5.2)
[2020-03-16] MEDS ORDERED: GUAI200S10 PO (13:07)
[2020-03-16] MEDS ORDERED: [UNRECOGNIZED DRUG - CODE] PO (13:08)
[2020-03-16] MEDS ORDERED: SCOP1.5D TOP (13:09)
== END 2020-03-16 15:45 | DRG 177 ==
LOC: ED 11:06 → ICU 12:03
PROVIDERS: Internal Medicine; Internal Medicine Endocrinology, Diabetes & Metabolism; ADMIT Emergency Medicine
DX: U07.1 COVID-19 (principal); J96.01 Acute respiratory failure with hypoxia; J18.8 Other pneumonia, unspecified organism; N39.0 Urinary tract infection, site not specified; I69.359 Hemiplegia and hemiparesis following cerebral infarction affecting unspecified side; E78.49 Other hyperlipidemia; I10 Essential (primary) hypertension; I69.391 Dysphagia following cerebral infarction; R13.19 Other dysphagia; J09.X2 Influenza due to identified novel influenza A virus with other respiratory manifestations; R50.9 Fever, unspecified; B96.20 Unspecified Escherichia coli [E. coli] as the cause of diseases classified elsewhere
CPT/HCPCS: 36415; 80048; 80053; 85027; 87040; 87635; 93005; 94760; 99285; C1726; J0132; J0360; J1650; J2185; J2270; J2543; J3490; Q9963; U0002

== ENCOUNTER 2020-03-21 07:15 | Inpatient (IN) | payer OTHER ==
[~2020-03-21] VITALS: Ht 175.3 cm; Wt 62.7 kg
[2020-03-21] VITALS (28 sets, daily range): BP systolic 97–157; BP diastolic 60–92; TEMP 97.4–100.4; Ht 175.3 cm; Wt 62.7 kg
[~2020-03-21 07:15] MED LIST changes: +GUAI200S10 PO; +IPRAAER INH; +KETO2SHA7 TOP; +LIPITOR40 MG PO; +MIRALAX3350 N1; +ONDA4TAB3 PEG; +SCOP1.5D TOP; +ZINC220 MG PEG; +[UNRECOGNIZED DRUG - CODE] PO
[2020-03-21 07:52] LABS: PLATELET COUNT 321 K/uL (142-355)
[2020-03-21 07:54] LABS: POTASSIUM 4.2 mmol/L (3.6-5.2)
[2020-03-21 09:36] LABS: PARTIAL THROMBOPLASTIN TIME 22.9 SECONDS (24.5-33.6)
[2020-03-22] VITALS (25 sets, daily range): BP systolic 111–146; BP diastolic 58–80; TEMP 97.6–99.8
[2020-03-22 05:47] LABS: PLATELET COUNT 221 K/uL (142-355)
[2020-03-23] VITALS (24 sets, daily range): BP systolic 93–153; BP diastolic 52–84; TEMP 97.6–101.7
[2020-03-23 09:21] LABS: POTASSIUM 3.9 mmol/L (3.6-5.2)
[2020-03-23 09:46] LABS: PLATELET COUNT 182 K/uL (142-355)
[2020-03-24] VITALS (23 sets, daily range): BP systolic 92–138; BP diastolic 48–78; TEMP 97.1–99.3
[2020-03-24 06:45] LABS: POTASSIUM 3.6 mmol/L (3.6-5.2)
[2020-03-24 10:17] LABS: PLATELET COUNT 179 K/uL (142-355)
[2020-03-25] VITALS (23 sets, daily range): BP systolic 109–160; BP diastolic 55–92; TEMP 97–99.1
[2020-03-25 06:20] LABS: PLATELET COUNT 239 K/uL (142-355)
[2020-03-25 06:24] LABS: POTASSIUM 3.4 mmol/L (3.6-5.2)
[2020-03-26] VITALS (21 sets, daily range): BP systolic 113–165; BP diastolic 50–766; TEMP 97.4–100.3
[2020-03-26 05:29] LABS: PLATELET COUNT 223 K/uL (142-355)
[2020-03-26 05:36] LABS: POTASSIUM 3.1 mmol/L (3.6-5.2)
[2020-03-27] VITALS (24 sets, daily range): BP systolic 114–1339; BP diastolic 52–90; TEMP 97.1–99.8
[2020-03-27 06:15] LABS: PLATELET COUNT 269 K/uL (142-355)
[2020-03-27 06:22] LABS: POTASSIUM 3.1 mmol/L (3.6-5.2)
[2020-03-28] VITALS (24 sets, daily range): BP systolic 120–159; BP diastolic 46–77; TEMP 97.4–98.9
[2020-03-28 05:42] LABS: POTASSIUM 3.9 mmol/L (3.6-5.2)
[2020-03-28 05:52] LABS: PLATELET COUNT 305 K/uL (142-355)
[2020-03-29] VITALS (14 sets, daily range): BP systolic 119–165; BP diastolic 52–81; TEMP 97.7–98.7
[2020-03-29 06:40] LABS: PLATELET COUNT 336 K/uL (142-355)
[2020-03-29 08:11] LABS: POTASSIUM 3.6 mmol/L (3.6-5.2)
[2020-03-29] MEDS ORDERED: MERO1INJ IV (13:46)
== END 2020-03-29 15:00 | DRG 177 ==
LOC: ED 07:17 → ICU 08:30
PROVIDERS: Emergency Medicine; Internal Medicine; Internal Medicine Endocrinology, Diabetes & Metabolism; ADMIT Hospitalist
PROC: 0DH67UZ Insertion of Feeding Device into Stomach, Via Natural or Artificial Opening (ICD-10-PCS; principal; 2020-03-21)
DX: U07.1 COVID-19 (principal); J96.01 Acute respiratory failure with hypoxia; J18.8 Other pneumonia, unspecified organism; I69.351 Hemiplegia and hemiparesis following cerebral infarction affecting right dominant side; N39.0 Urinary tract infection, site not specified; T85.528A Displacement of other gastrointestinal prosthetic devices, implants and grafts, initial encounter; I69.391 Dysphagia following cerebral infarction; R13.19 Other dysphagia; B96.20 Unspecified Escherichia coli [E. coli] as the cause of diseases classified elsewhere; I10 Essential (primary) hypertension
CPT/HCPCS: 36415; 36600; 51702; 80048; 80053; 80202; 81000; 82550; 82805; 83605; 83880; 84484; 85027; 85610; 85730; 87040; 87070; 87077; 87086; 87088; 87186; 87205; 87635; 94668; 94760; 96360; 96361; 96365; 96366; 96374; 99285; J0696; J1650; J1956; J2185; J2270; J2405; J2543; J2765; J2930; J3370; J3490; U0002

== ENCOUNTER 2020-03-22 11:46 | Inpatient (IN) | payer OTHER ==
[2020-03-29] MEDS ORDERED: MERO1INJ IV (13:46)
== END 2020-04-21 11:55 | disposition still patient (30) ==
LOC: PAVC 11:46
PROVIDERS: ADMIT Internal Medicine
DX: N39.0 Urinary tract infection, site not specified (principal); U07.1 COVID-19; I69.359 Hemiplegia and hemiparesis following cerebral infarction affecting unspecified side; I63.442 Cerebral infarction due to embolism of left cerebellar artery; I10 Essential (primary) hypertension

== ENCOUNTER 2020-04-21 06:50 | Outpatient (CLI) | payer OTHER ==
[~2020-04-21 06:50] MED LIST changes: +MERO1INJ IV
[2020-04-21 09:35] LABS: POTASSIUM 3.5 mmol/L (3.6-5.2)
[2020-04-21 09:53] LABS: PLATELET COUNT 281 K/uL (142-355)
== END 2020-04-21 22:01 | disposition home or self-care (01) ==
LOC: LAB 06:50
PROVIDERS: Internal Medicine
DX: I63.442 Cerebral infarction due to embolism of left cerebellar artery (principal)
CPT/HCPCS: 80053; 85027

== ENCOUNTER 2020-04-21 12:08 | Inpatient (IN) | payer OTHER | END 2020-05-22 10:13 | disposition still patient (30) | LOC: PAVC 12:08 | PROVIDERS: ADMIT Internal Medicine ==

== ENCOUNTER 2020-05-22 10:27 | Inpatient (IN) | payer OTHER | END 2020-06-22 14:01 | disposition still patient (30) | LOC: PAVC 10:27 | PROVIDERS: ADMIT Internal Medicine ==

== ENCOUNTER 2020-06-16 10:47 | Outpatient (CLI) | payer OTHER | END 2020-06-16 22:01 | disposition home or self-care (01) | LOC: LAB 10:47 | DX: N39.0 Urinary tract infection, site not specified (principal) | CPT/HCPCS: 81000; 87077; 87086; 87088; 87186 ==

== ENCOUNTER 2020-06-21 08:59 | Outpatient (CLI) | payer OTHER | END 2020-06-21 22:58 | disposition home or self-care (01) | LOC: LAB 08:59 | DX: Z12.5 Encounter for screening for malignant neoplasm of prostate (principal); N40.0 Benign prostatic hyperplasia without lower urinary tract symptoms | CPT/HCPCS: 84153 ==

== ENCOUNTER 2020-06-22 14:38 | Inpatient (IN) | payer OTHER | END 2020-07-22 14:08 | disposition still patient (30) | LOC: PAVC 14:38 | PROVIDERS: ADMIT Internal Medicine ==

== ENCOUNTER 2020-06-28 15:59 | Outpatient (CLI) | payer OTHER | END 2020-06-28 21:23 | disposition home or self-care (01) | LOC: LAB 15:59 | DX: R36.9 Urethral discharge, unspecified (principal) | CPT/HCPCS: 87070 ==

== ENCOUNTER 2020-06-30 18:12 | Outpatient (CLI) | payer OTHER | END 2020-06-30 23:41 | disposition home or self-care (01) | LOC: RESP 18:12 | DX: Z01.818 Encounter for other preprocedural examination (principal) | CPT/HCPCS: 93005 ==

== ENCOUNTER 2020-07-01 06:48 | Outpatient (CLI) | payer OTHER ==
[2020-07-01 07:54] LABS: PLATELET COUNT 267 K/uL (142-355)
[2020-07-01 08:08] LABS: POTASSIUM 4.2 mmol/L (3.6-5.2)
== END 2020-07-01 22:59 | disposition home or self-care (01) ==
LOC: LAB 06:48
PROVIDERS: Internal Medicine
DX: A41.9 Sepsis, unspecified organism (principal); I10 Essential (primary) hypertension; I63.442 Cerebral infarction due to embolism of left cerebellar artery
CPT/HCPCS: 80048; 85027; 85610

== ENCOUNTER 2020-07-22 15:01 | Inpatient (IN) | payer OTHER | END 2020-08-22 08:00 | disposition still patient (30) | LOC: PAVC 15:01 | PROVIDERS: ADMIT Internal Medicine ==

== ENCOUNTER 2020-08-06 16:48 | Outpatient (CLI) | payer OTHER ==
[2020-08-06 17:21] LABS: PLATELET COUNT 305 K/uL (142-355)
[2020-08-06 17:37] LABS: POTASSIUM 3.9 mmol/L (3.6-5.2)
== END 2020-08-06 22:29 | disposition home or self-care (01) ==
LOC: RAD 16:48 → LAB 16:48 → RAD 22:29
PROVIDERS: Internal Medicine
DX: R91.8 Other nonspecific abnormal finding of lung field (principal); R50.9 Fever, unspecified; R61 Generalized hyperhidrosis; R05 Cough; R82.998 Other abnormal findings in urine; R68.89 Other general symptoms and signs; R79.89 Other specified abnormal findings of blood chemistry
CPT/HCPCS: 80048; 81000; 85027; 87077; 87086; 87088; 87186

== ENCOUNTER 2020-08-16 13:07 | Outpatient (CLI) | payer OTHER | END 2020-08-16 20:33 | disposition home or self-care (01) | LOC: LAB 13:07 | DX: N39.0 Urinary tract infection, site not specified (principal) | CPT/HCPCS: 81000 ==

== ENCOUNTER 2020-08-22 09:00 | Inpatient (IN) | payer OTHER | END 2020-09-21 12:24 | disposition still patient (30) | LOC: PAVC 09:00 | PROVIDERS: ADMIT Internal Medicine; ATTEND Internal Medicine ==

== ENCOUNTER 2020-09-21 12:39 | Inpatient (IN) | payer OTHER ==
[2020-12-13] MEDS ORDERED: LIPITOR40 MG PEG (01:37)
[2020-12-13] MEDS ORDERED: ASCORBIC ACD500 MG PEG (01:39)
== END 2020-10-22 09:47 | disposition still patient (30) ==
LOC: PAVC 12:39
PROVIDERS: ADMIT Internal Medicine; ATTEND Internal Medicine
CPT/HCPCS: 81000; 87086; 87088

== ENCOUNTER 2020-09-26 13:05 | Outpatient (CLI) | payer OTHER | END 2020-09-26 19:32 | disposition home or self-care (01) | LOC: LAB 13:05 | PROVIDERS: ATTEND Internal Medicine | DX: N39.0 Urinary tract infection, site not specified (principal) | CPT/HCPCS: 81000; 87077; 87086; 87088; 87186 ==

== ENCOUNTER 2020-10-11 10:24 | Outpatient (CLI) | payer OTHER | END 2020-10-11 19:37 | disposition home or self-care (01) | LOC: LAB 10:24 | PROVIDERS: ATTEND Internal Medicine | DX: N39.0 Urinary tract infection, site not specified (principal) | CPT/HCPCS: 81000; 87077; 87086; 87088; 87186 ==

== ENCOUNTER 2020-10-22 09:59 | Inpatient (IN) | payer OTHER ==
[2020-11-14] MEDS ORDERED: MACRODANTIN50 MG PEG (00:41)
[2020-11-14] MEDS ORDERED: ARTIFICIAL TEARS1 % OPTH (00:42)
[2020-11-14] MEDS ORDERED: [UNRECOGNIZED DRUG - CODE] PO (00:44)
[2020-11-14] MEDS ORDERED: CEFU250T2 PEG (00:46)
[2020-11-14] MEDS ORDERED: TRIA0.1C19 TOP (00:47)
[2020-11-14] MEDS ORDERED: DIPH25CA90 PEG (00:49)
[2020-11-14] MEDS ORDERED: HYDR5TAB9 PEG (00:50)
[2020-11-14] MEDS ORDERED: IBU800 MG PEG (00:52)
[2020-12-13] MEDS ORDERED: LIPITOR40 MG PEG (01:37)
[2020-12-13] MEDS ORDERED: ASCORBIC ACD500 MG PEG (01:39)
== END 2020-11-22 15:30 | disposition still patient (30) ==
LOC: PAVC 09:59
PROVIDERS: ADMIT Internal Medicine; ATTEND Internal Medicine
DX: J18.9 Pneumonia, unspecified organism (principal); N30.00 Acute cystitis without hematuria; I69.359 Hemiplegia and hemiparesis following cerebral infarction affecting unspecified side; I63.442 Cerebral infarction due to embolism of left cerebellar artery; I10 Essential (primary) hypertension; M12.9 Arthropathy, unspecified; K21.9 Gastro-esophageal reflux disease without esophagitis; Z93.1 Gastrostomy status

== ENCOUNTER 2020-10-25 11:25 | Outpatient (CLI) | payer OTHER ==
[2020-10-25 12:04] LABS: POTASSIUM 4.3 mmol/L (3.6-5.2)
[2020-12-13] MEDS ORDERED: LIPITOR40 MG PEG (01:37)
[2020-12-13] MEDS ORDERED: ASCORBIC ACD500 MG PEG (01:39)
== END 2020-10-25 21:09 | disposition home or self-care (01) ==
LOC: LAB 11:25
PROVIDERS: ATTEND Internal Medicine
DX: I63.442 Cerebral infarction due to embolism of left cerebellar artery (principal); E78.49 Other hyperlipidemia
CPT/HCPCS: 80053; 80061

== ENCOUNTER 2020-11-08 02:03 | Outpatient (CLI) | payer OTHER ==
[2020-12-13] MEDS ORDERED: LIPITOR40 MG PEG (01:37)
[2020-12-13] MEDS ORDERED: ASCORBIC ACD500 MG PEG (01:39)
== END 2020-11-08 19:18 | disposition home or self-care (01) ==
LOC: RAD 02:03
PROVIDERS: ATTEND Internal Medicine
DX: J18.9 Pneumonia, unspecified organism (principal)

== ENCOUNTER 2020-11-08 04:19 | Outpatient (CLI) | payer OTHER ==
[2020-11-08 05:44] LABS: PLATELET COUNT 349 K/uL (142-355)
[2020-11-08 06:47] LABS: POTASSIUM 4.3 mmol/L (3.6-5.2)
[2020-12-13] MEDS ORDERED: LIPITOR40 MG PEG (01:37)
[2020-12-13] MEDS ORDERED: ASCORBIC ACD500 MG PEG (01:39)
== END 2020-11-08 19:19 | disposition home or self-care (01) ==
LOC: LAB 04:19
PROVIDERS: ATTEND Internal Medicine
DX: N39.0 Urinary tract infection, site not specified (principal); R50.9 Fever, unspecified
CPT/HCPCS: 80053; 81000; 85027

== ENCOUNTER 2020-11-13 13:50 | Inpatient (IN) | payer OTHER ==
[~2020-11-13] VITALS: Ht 167.6 cm; Wt 58.1 kg
[2020-11-13] VITALS (7 sets, daily range): BP systolic 100–129; BP diastolic 61–81; TEMP 98–100; Ht 167.6 cm; Wt 58.1 kg
[2020-11-13 14:33] LABS: PLATELET COUNT 351 K/uL (142-355)
[2020-11-13 14:39] LABS: POTASSIUM 3.5 mmol/L (3.6-5.2); SODIUM 156 mmol/L (136-145)
[2020-11-14 00:19] VITALS: BP 96/58; TEMP 98.5
[2020-11-14] MEDS ORDERED: MACRODANTIN50 MG PEG (00:41)
[2020-11-14] MEDS ORDERED: ARTIFICIAL TEARS1 % OPTH (00:42)
[2020-11-14] MEDS ORDERED: [UNRECOGNIZED DRUG - CODE] PO (00:44)
[2020-11-14] MEDS ORDERED: CEFU250T2 PEG (00:46)
[2020-11-14] MEDS ORDERED: TRIA0.1C19 TOP (00:47)
[2020-11-14] MEDS ORDERED: DIPH25CA90 PEG (00:49)
[2020-11-14] MEDS ORDERED: HYDR5TAB9 PEG (00:50)
[2020-11-14] MEDS ORDERED: IBU800 MG PEG (00:52)
[2020-11-14 04:13] VITALS: BP 101/64; TEMP 99.4
[2020-11-14 04:51] LABS: PLATELET COUNT 304 K/uL (142-355)
[2020-11-14 05:08] LABS: POTASSIUM 3.5 mmol/L (3.6-5.2)
[2020-11-14 08:00] VITALS: BP 120/71; TEMP 98
[2020-11-14 12:00] VITALS: BP 126/63; TEMP 99.8
[2020-11-14 16:00] VITALS: BP 120/69; TEMP 99.4
[2020-11-14 20:20] VITALS: BP 105/72; TEMP 97.5
[2020-11-15] VITALS (7 sets, daily range): BP systolic 96–147; BP diastolic 55–84; TEMP 97.7–100.5
[2020-11-15 07:22] LABS: PLATELET COUNT 288 K/uL (142-355)
[2020-11-15 07:52] LABS: POTASSIUM 3.9 mmol/L (3.6-5.2)
[2020-11-16 04:21] VITALS: BP 115/71; TEMP 99.3
[2020-11-16 08:03] VITALS: BP 101/53; TEMP 97.6
[2020-11-16 08:25] LABS: PLATELET COUNT 193 K/uL (142-355)
[2020-11-16 08:31] LABS: POTASSIUM 4.2 mmol/L (3.6-5.2)
[2020-11-16 12:00] VITALS: BP 102/51; TEMP 97.6
[2020-11-16 15:59] VITALS: BP 100/58; TEMP 97.7
[2020-11-16 20:21] VITALS: BP 124/71; TEMP 98.8
[2020-11-17] VITALS (7 sets, daily range): BP systolic 94–150; BP diastolic 51–78; TEMP 97.3–99
[2020-11-17 05:08] LABS: PLATELET COUNT 305 K/uL (142-355)
[2020-11-17 05:19] LABS: POTASSIUM 3.6 mmol/L (3.6-5.2)
[2020-11-18 04:17] VITALS: BP 164/84; TEMP 97.8
[2020-11-18 05:35] LABS: POTASSIUM 4.6 mmol/L (3.6-5.2)
[2020-11-18 05:37] LABS: PLATELET COUNT 297 K/uL (142-355)
[2020-11-18 08:00] VITALS: BP 175/87; TEMP 97.9
[2020-11-18 12:00] VITALS: BP 146/60; TEMP 97.6
[2020-12-13] MEDS ORDERED: LIPITOR40 MG PEG (01:37)
[2020-12-13] MEDS ORDERED: ASCORBIC ACD500 MG PEG (01:39)
== END 2020-11-18 17:10 | DRG 194 ==
LOC: ED 14:14 → MED/SURG 16:25
PROVIDERS: Family Medicine; Internal Medicine Endocrinology, Diabetes & Metabolism; ADMIT Internal Medicine; ATTEND Internal Medicine
DX: J18.8 Other pneumonia, unspecified organism (principal); N30.00 Acute cystitis without hematuria; I69.351 Hemiplegia and hemiparesis following cerebral infarction affecting right dominant side; B37.0 Candidal stomatitis; Y95 Nosocomial condition; B96.20 Unspecified Escherichia coli [E. coli] as the cause of diseases classified elsewhere; I69.891 Dysphagia following other cerebrovascular disease; R13.19 Other dysphagia; I69.821 Dysphasia following other cerebrovascular disease; E78.49 Other hyperlipidemia; I10 Essential (primary) hypertension; R91.1 Solitary pulmonary nodule
CPT/HCPCS: 36415; 80048; 80053; 81000; 83605; 84484; 85027; 85379; 85610; 85730; 87040; 87077; 87086; 87088; 87186; 87502; 87635; 87651; 94640; 94664; 94760; 96360; 96365; 99284; J0132; J0456; J0696; J1650; J2185; J2270; Q9963; U0003

== ENCOUNTER 2020-11-22 15:48 | Inpatient (IN) | payer OTHER ==
[~2020-11-22 15:48] MED LIST changes: +ARTIFICIAL TEARS1 % OPTH; +CEFU250T2 PEG; +DIPH25CA90 PEG; +HYDR5TAB9 PEG; +IBU800 MG PEG; +MACRODANTIN50 MG PEG; +TRIA0.1C19 TOP; +[UNRECOGNIZED DRUG - CODE] PO
[2020-12-13] MEDS ORDERED: LIPITOR40 MG PEG ×2 (01:37)
[2020-12-13] MEDS ORDERED: ASCORBIC ACD500 MG PEG ×2 (01:39)
== END 2020-12-20 11:15 | disposition still patient (30) ==
LOC: PAVC 15:48
PROVIDERS: ADMIT Internal Medicine; ATTEND Internal Medicine
DX: J18.9 Pneumonia, unspecified organism (principal); N30.00 Acute cystitis without hematuria; I69.359 Hemiplegia and hemiparesis following cerebral infarction affecting unspecified side; I63.442 Cerebral infarction due to embolism of left cerebellar artery; I10 Essential (primary) hypertension; M12.9 Arthropathy, unspecified; K21.9 Gastro-esophageal reflux disease without esophagitis; Z93.1 Gastrostomy status

== ENCOUNTER 2020-12-12 20:57 | Inpatient (IN) | payer OTHER ==
[~2020-12-12] VITALS: Ht 180.3 cm; Wt 61.3 kg
[2020-12-12 20:57] VITALS: BP 139/77; TEMP 98.7
[2020-12-12 21:30] VITALS: BP 131/73
[2020-12-12 22:00] VITALS: BP 143/85
[2020-12-12 22:30] VITALS: BP 127/86
[2020-12-12 22:38] LABS: POTASSIUM 3.7 mmol/L (3.6-5.2)
[2020-12-12 22:48] LABS: PLATELET COUNT 414 K/uL (142-355)
[2020-12-12 23:00] VITALS: BP 125/81
[2020-12-12 23:30] VITALS: BP 138/90
[2020-12-13] VITALS (7 sets, daily range): BP systolic 89–139; BP diastolic 45–73; TEMP 97–100.5; Ht 180.3 cm; Wt 61.3 kg
--- NOTE | 2020-12-13 00:06 | NUR ---
PATIENT TRANSFERRED TO FLOOR FROM ER AT THIS TIME VIA STRETCHER. SIMPLE MASK ON AT 10L/MIN. 22G TO LEFT HAND SALINE LOCKED. PATIENT ALERT BUT UNABLE TO VERBALIZE NEEDS SECONDARY TO EFFECTS OF PREVIOUS CVA. PEG TUBE AND DRESSING INTACT. PRESSURE ULCER TO SACRUM. CURRENT MEASUREMENTS ARE APPROXIMATELY: 2.4CM IN WIDTH, 2.6CM IN LENGTH, 1CM IN DEPTH. SCOPOLAMINE PATCH BEHIND LEFT EAR. TRANSFERRED TO FLOOR BED. BED ALARM ON. BED LOCKED AND IN LOWEST POSITION AT THIS TIME.
[2020-12-13] MEDS ORDERED: LIPITOR40 MG PEG ×2 (01:37)
[2020-12-13] MEDS ORDERED: ASCORBIC ACD500 MG PEG ×2 (01:39)
--- NOTE | 2020-12-13 02:30 | NUR ---
TUBE FEEDINGS TO RESUME ORDERED [facility]. 2CAL HR GIVEN VIA PEG TUBE AT THIS TIME WITH 60CC OF FLUID GIVEN BEFORE AND AFTER. PATIENT TOLERATED WELL. PATIENT WILL COUGH OCCASIONALLY AND SECRETIONS AND PHELGM WILL POOL INSIDE THE MOUTH. SUCTION AT BEDSIDE TO USE NEEDED. THICK, WHITE PHELGM REMOVED AT THIS TIME ALSO. NAD NOTED AT THIS TIME. BED ALARM ON. BED LOCKED AND IN LOWEST POSITION.
--- NOTE | 2020-12-13 04:12 | NUR ---
0400 VITAL SIGNS ARE FOLLOWS: 100.5F AXILLARY, 99, 22, 89/45, 94% WITH VENTI-MASK @ 12L. B/P CHECKED MANUALLY BY THIS DRY CELL TESTER AND WAS 82/39. DR. GARDNER CALLED AT THIS TIME AND INFORMED OF THE ABOVE. I ALSO ASKED HIM ABOUT PAIN MEDICATION FOR PATIENT BECAUSE HE HAD RECEIVED IT FREQUENTLY AT THE [facility]. FOLLOWING ORDERS GIVEN: 1L OF NORMAL SALINE BOLUS, NORCO 5/325MG 1 TAB VIA PEG TUBE Q6H PRN PAIN. ORDERS READ BACK AND VERIFIED BY .
[2020-12-13 05:49] LABS: POTASSIUM 3.8 mmol/L (3.6-5.2)
[2020-12-13 06:13] LABS: PLATELET COUNT 312 K/uL (142-355)
--- NOTE | 2020-12-13 08:09 | NUR ---
PT ON RT SIDE, HOB 30 DEGREES, MOANING AT TIMES, VM IN PLACE 12LPM/40%, SATS 97%. REMOVED RECENTLY PLACED OPTIFOAM TO ASSESS UNSTAGEABLE WOUND TO SACRUM, CHARGE NURSE IN TO ASSESS WELL. AUSCULTATED PEG FOR PLACEMENT WITH POSITIVE PLACEMENT NOTED, ASPIRATED FOR RESIDUAL WITH NONE NOTED. MEDS CRUSHED AND ADMIN VIA PEG W/O DIFFICULTY, PEG FLUSHED WITH 60CC POST ADMIN. PT LEFT POSITIONED ON L SIDE, HEELS FLOATED, HOB AT 30 DEGREES. BED LOW, LOCKED, SR UP X2 FOR SAFETY, ALARM ON. NS BOLUS CONTINUES TO INFUSE AT 250ML/HR TO 22G IN LH, IV NOTED TO BE FREE FROM REDNESS, WARMTH OR SWELLING.
--- NOTE | 2020-12-13 09:32 | NUR ---
WET COUGH, GURGLING NOTED. PT SX, PERICARE PROVIDED, PT REPOSITIONED, HOB AT 30DEGREES.
--- NOTE | 2020-12-13 12:07 | NUR ---
JAYMIE WIGGINS- PLACE JENN TO BEDSIDE DRAINAGE ( WOUND/I/O)
--- NOTE | 2020-12-13 14:17 | NUR ---
18F BARAJAS PLACED APPROX 300CC CLOUDY, LIGHT KEVIN URINE TO GRAVITY BAG BEFORE BEING CLAMPED. PERICARE PROVIDED, PT REPOSITIONED, HOB AT 30 DEGREES, BED LOW, LOCKED, SR UP X2 FOR SAFETY. VM IN PLACE.
--- NOTE | 2020-12-13 14:25 | NUR ---
URINE SAMPLE TAKEN TO LAB.
--- NOTE | 2020-12-13 14:27 | NUR ---
UPDATE GIVEN TO PT'S DAUGHTER CARISSA NELSON AT [phone]
--- NOTE | 2020-12-13 16:17 | NUR ---
PT HAS STAGE 3 DECUBITIS TO SACRUM MEASURES 3.5CM X 3.4 CMX 1.0 CM. WOUND BED 95% COVERED WITH SLOUGH. NO ODOR AND NO DRAINAGE OBSERVED. [facility]IFIED [facility] TO SEE WHAT THE ORDERS ARE FOR WOUND CARE TO SACRUM. BANJO REPAIRER INFORMED THAT THE ORDERS HAVE BEEN IN PLACE SINCE 11/19/20 FOR DAILY WOUND CARE CALCIUM ALGINADE WITH SILVER. COVER WITH OPTIFOAM. DR WIGGINS NOTIFIED NEW ORDERS FOR CLEAN WOUND WITH NS APPLY SKIN PREP TO HOMA WOUND AREA APPLY SANTYL TO STERILE 4X4 APPLY TO WOUND BED ONLY COVER WITH OPTIFOAM DAILY AND PRN.
--- NOTE | 2020-12-13 16:47 | NUR ---
ORDER CLARIFICATION WITH DR. WIGGINS- ONLY ONE SCOPOLAMINE PATCH NEEDED NOT TWO.
--- NOTE | 2020-12-13 17:42 | NUR ---
PT GROANING OUT LOUD, 800MG IBUPROFEN CRUSHED AND ADMIN VIA PEG. HOB ELEVATED, BED LOW, LOCKED, SR UP X2 FOR SAFETY.
--- NOTE | 2020-12-14 00:06 | NUR ---
THERE WAS 2MG OF RESIDUAL AT TIME OF FEEDING. PATIENT WAS FED VIA G TUBE AT 2100 A CAN F 2CAL WITH EQUEL PARTS WATER . FLUSHED WITH 60MLS BEFORE AND AFTER.
[2020-12-14 03:53] VITALS: BP 101/56; TEMP 98.2
--- NOTE | 2020-12-14 04:37 | NUR ---
mouth care and suction was preformed at 0000 2nd feeding was preformed at 0300, at the beginning there was no resisdual
[2020-12-14 05:57] LABS: PLATELET COUNT 252 K/uL (142-355)
[2020-12-14 08:00] VITALS: BP 127/65; TEMP 97.8
--- NOTE | 2020-12-14 10:04 | NUR ---
12/14/2020 0900 2CAL PEG TUBE FEEDING X 1 CAN WITH EQUAL AMOUNT FLUSH.PT ALERT MOANING GIVEN ALSO AM MEDS.PT TOLERATED WELL NO RRESDIUAL PRIOR TO FEEDING.SALINE LOCK TO LEFT AND INTACT STARTED ANTIBIOTIC THERAPY.OXYGEN SATURATION 98 PERCNET.CC
--- NOTE | 2020-12-14 11:23 | NUR ---
12/14/2020 1125 AWAKE MAKES NOISES HOLDING ARM EXTENDED OUT TOLT ARM.SL TO LT HAND ANTIBOITIC INFUISNG NO SWELLING NOTED TO ARM OR SITE.CALL LIGHT WITHIN REACH.BEDALARM IS ON.CC
--- NOTE | 2020-12-14 11:42 | NUR ---
12/14/2020 1135 HOSP INTO SEE PATIENT AND DISCUSS PLAN OF CARE.ALSO RESPIRATORY IN TO GIVE BREATHING TREATMENT.PT IS ALERT LOOKING AROUND WILL HOLD YOUR HAND AND MOANS TO COMMUNICATE WITH YOU.
--- NOTE | 2020-12-14 14:04 | NUR ---
12/14/2020 1405 DAUGHTER CARISSA CALLED TO CHECK ON PATIENT AND DISCUSS PLAN OF CARE RELATED TO PATIENT CONDITION.CC
--- NOTE | 2020-12-14 15:05 | NUR ---
12/14/2020 1445 2 ABI FEEDING GIVEN WITH EQUAL FEEDING FLUSHED WITH 60 H20.TOLERATED WELL.PT HOB ELEVATED.TELE STRIPS REAPPLIED.CALL LIGHT WITHIN REACH CC
[2020-12-14 16:00] VITALS: BP 120/50; TEMP 98.4
--- NOTE | 2020-12-14 16:36 | NUR ---
12/14/2020 1630 DSY CHANGED TO SACCRUM STAGE 3 CLEANED APPLIED MEDICATION ORDERED.THEN PLACED 4X4 AND AQUAFOAM.PEG TUBE DSY CHANGED CLEAN NO DRAINAGE NOTED AROUND SITE.REPOSTIONED TO RT SIDE WITH HEELS FLOATED.CALL LIGHT WITHIN REACH.CC
[2020-12-14 19:41] VITALS: BP 143/63; TEMP 98.3
[2020-12-14 23:34] VITALS: BP 154/81; TEMP 98.5
--- NOTE | 2020-12-15 01:44 | NUR ---
AT 2200 THE PATIENTS FAMILY MEMBER WAS UPDATED ON HIS STAUS
--- NOTE | 2020-12-15 03:41 | NUR ---
PATIENT PULLED OUT HIS IV THAT WAS IN HIS LF HAND. IV SITE CLEAN DRY AND INTACT. OLD IV CAITHER TIP INTACT. NEW IV SITE IN RT FOREARM. 22G SALINE LOCKED
[2020-12-15 04:08] VITALS: BP 181/96; TEMP 97.9
[2020-12-15 04:44] LABS: PLATELET COUNT 360 K/uL (142-355)
[2020-12-15 04:54] LABS: POTASSIUM 3.8 mmol/L (3.6-5.2)
--- NOTE | 2020-12-15 06:10 | NUR ---
PATIENT HAD RESIDULE AND WAS COUGHING CAUSING THE FEEDING TO COME UP THE TUBE. I HELD THE 3RD CAN OF 2CAL, AND WILL REPORT TO ONCOMING SHIFT
[2020-12-15 08:00] VITALS: BP 136/63; TEMP 97.8
--- NOTE | 2020-12-15 10:46 | NUR ---
IN PT RM TO ADMINISTER 1100 PEG FEEDING, PT LYING IN HF AT 40 DEGRESS, NAD NOTED, 10ML NOTED ON RETURN FROM PEG, FLUSHED PEG WITH 60ML WATER WITHOUT DIFFIUCLTY, ADMINISTER ONE CAN 2CAL MIXED WITH 1 CAN OF WATER, PT TOLERATED WELL, FLUSHED WITH 60ML WATER, NO FURTHER NEEDS AT THIS TIME, WILL CONTINUE TO MONITOR
--- NOTE | 2020-12-15 11:47 | NUR ---
IN PT RM TO HANG ANTIBIOTIC, PT GRUNTING LOUDLY, ASKED PT TO GIVE ME THUMBS UP IF HE IS IN PAIN AND PT GAVE ME A THUMBS UP BUT PT UNABLE TO VOICE WHERE PAIN IN OR SHOW ME, PAIN MEDICATION WILL BE GIVEN AT THIS TIME, WILL CONTINUE TO MONITOR
[2020-12-15 12:00] VITALS: BP 130/68; TEMP 98
[2020-12-15 16:00] VITALS: BP 158/76; TEMP 98
--- NOTE | 2020-12-15 17:57 | NUR ---
IN PT RM TO ADMINISTER 2 ABI PEG FEEDING AND CHANGE DRESSING TO SACRAL WOUND, PT LYING IN HF AT 45 DEGRESS, PT TURNED TO LT SIDE, OL DRESSING REMOVED, STAGE III SACRAL WOUND NOTED WITH SLOUGH COVERING WOUND AREA, AREA CLEANED WITH NS AND GAUZE, SANTYL APPLIED TO WOUND BED WITH GAUZE AND OPTIFOAM PLACED OVER WOUND, DRESSING INTACT AT THIS TIME, PT TOLERATED PROCEDURE WELL, PEG TUBE FEEDING ADMINISTERED, NO RESIDUAL NOTED ON RETURN, FLUSHED TUBE WITH 60ML WATER WITHOUT DIFFICULTY, ADMINISTERED 1 CAN OF 2CAL MIXED WITH 1 CAN OF WATER, FLUSHED PEG WITH 60ML WATER, NO FURTHER NEEDS AT THIS TIME, WILL CONTINUE TO MONITOR
[2020-12-15 20:00] VITALS: BP 150/65; TEMP 98.3
[2020-12-16] VITALS: BP 159/79; TEMP 99.6
--- NOTE | 2020-12-16 03:22 | NUR ---
12/15/20 AT 2130 PATIENT GIVEN ONE CAN OF TWO ABI HN WITH EQUAL PARTS OF H20 PER PEG TUBE AND FLUSHED WITH 60 MLS OF H2O BEFORE AND AFTER FEEDING. PATIENT TOLERATED WELL. WILL CONTINUE TO MONITOR.
--- NOTE | 2020-12-16 03:24 | NUR ---
12/16/20 AT 0230 PATIENT GIVEN ONE CAN OF TWO ABI HN WITH EQUAL PART OF H20 WITHOUT DIFFICULTY NO RESIDUAL NOTED PRIOR TO FEEDING. PATIENT TOLERATED WELL. WILL CONTINUE TO MONITOR.
[2020-12-16 04:00] VITALS: BP 132/71; TEMP 98.8
[2020-12-16 04:49] LABS: PLATELET COUNT 291 K/uL (142-355)
[2020-12-16 05:13] LABS: POTASSIUM 3.9 mmol/L (3.6-5.2)
[2020-12-16 07:44] VITALS: BP 146/75; TEMP 97.8
--- NOTE | 2020-12-16 11:30 | NUR ---
IN PT RM TO ADIMINSTER PEG TUBE FEEDING, PT LYING IN HF AT 45 DEGREES, NAD NOTED, PT EYES OPEN, PT IS APHASIC, NO RESIDUAL NOTED ON RETURN FROM PEG, FLUUSHED PEG WITH 60ML WATER WITHOUT DIFFICULTY, GAVE 1 CAN OF 2 ABI MIXED WITH 1 CAN OF WATER, PT TOLERATED WELL, FLUSHED PEG WITH 60ML WATER WITHOUT DIFFICULTY, HUNG ANITBIOTIC AT THIS TIME, NO FURTHER NEEDS AT THIS TIME, WILL CONTINUETO MONITOR
[2020-12-16 11:42] VITALS: BP 131/58; TEMP 98.1
--- NOTE | 2020-12-16 14:00 | NUR ---
JA PCT STATES WHEN SHE WALKED IN TO TURN PT, SHE NOTICED PT PULLED HIS IV OUT, NO BLEEDING OR DRAINAGE NOTED TO SITE, NAD NOTED TO PT, PT UNABLE TO VOICE NEEDS AND GRUNTING LOUDLY, TRIED TO SUCTION PT AND HE BITES DOWN OFFERED TO LET HIM SUCTION AND HE DID NOT REACH FOR IT, WILL CONTINUE TO MONITOR
[2020-12-16 15:53] VITALS: BP 138/76; TEMP 98
--- NOTE | 2020-12-16 18:32 | NUR ---
IN PT RM TO CHANGE DRESSING IN SACRUM, OLD OPTIFOAM REMOVED AND AREA CLEANED WITH NS, SACRAL WOUND NOTED TO HAVE SLOUGH TO 100% OF THE AREA, NO DRAINAGE NOTED, SANTYL SPREAD ON WOUND AREA AND SKIN PREP APPLIED TO SKIN AROUND WOUND, OPTIFOAM PLACED OVER WOUND, PT TOLERATED WELL, WHEN ASSESSING PEG TUBE FOR RESIDUAL TO ADMINISTER PEG FEEDING, 40ML RESIDUAL NOTED ON RETURN SO PEG FEEDING WAS HELD AT THIS TIME, PT LYING AT 30 DEGREES, NON LABORED BREATHING, NAD NOTED, WILL CONTINUE TO MONITOR
[2020-12-16 20:00] VITALS: BP 149/69; TEMP 98.9
--- NOTE | 2020-12-16 21:39 | NUR ---
2130 IN TO GIVE PATIENTS NIGHT TIME MEDS AND FEEDING. PATIENT GIVEN ONE CAN OF 2 ABI HN WITH EQUAL PARTS H20 PATIENT TOLERATED WELL. NO ACUTE DISTRESS NOTED. WILL CONTINUE TO MONITOR.
[2020-12-17] VITALS: BP 121/61; TEMP 98.7
[2020-12-17 04:00] VITALS: BP 141/69; TEMP 98.1
--- NOTE | 2020-12-17 05:13 | NUR ---
0515 PATIENT GIVEN ONE CAN OF 2 ABI WITH EQUAL PARTS OF H20 AND FLUSHED WITH 60 MLS OF H20 BEFORE AND AFTER. PATIENT ALSO GIVEN MIRALAX 17 GMS, NO BM IN THE LAST TWO DAYS AND PATIENT IS RUBBING HIS ABDOMEN AND HAS SMALL AMOUNT OF RESIDUAL NOTED BEFORE FEEDING. PATIENT TOLERATED WELL AND WILL CONTINUE TO MONITOR.
[2020-12-17 05:21] LABS: PLATELET COUNT 362 K/uL (142-355)
[2020-12-17 05:36] LABS: POTASSIUM 3.9 mmol/L (3.6-5.2)
[2020-12-17 07:51] VITALS: BP 107/62; TEMP 98
--- NOTE | 2020-12-17 10:30 | NUR ---
12/17/2020 1030 2 ABI FEEDING GIVEN WITH EQUAL AMOUNT H20.WITH 60ML FLUSH BEFORE AND AFTER FEEDINS.PEG TUBE DSY CHANGED TO SITE.PT COUGHING SUCTIONED WITH SMALL AMOUNT SECRETIONS CLEAR-THICK TOLERATED WELL.CC
[2020-12-17 11:59] VITALS: BP 119/66; TEMP 97.6
--- NOTE | 2020-12-17 12:32 | NUR ---
12/17/2020 BARAJAS CATHETER REMOVED APPROX 500ML CLEAR URINE OUT TOLERATED WELL.CC
--- NOTE | 2020-12-17 12:40 | NUR ---
12/17/2020 1230 REPORT CALLED TO [facility] SPOKE WITH CHEIKH ALFARO.REPORT GIVEN TOLD HER EMS HAS BEEN NOTIFIED TO PICK PATIENT UP AND BRING BACK TO FACILTY.TOLD NURSE SALAMANCA THAT PT WILL CONTINUE MEROPENEM 1000MG IV EVERY 8 HOURS FOR TOTAL 13 MORE DOSES TO BE GIVEN AT [facility].TOLD NURSE PT BARAJAS HAS BEEN REMOVED WATCH FOR PT VOIDING POST TAKING BARAJAS CATHTER OUT.ALSO WILL LEAVE SALINE LOCK 22 G TO LEFT FOREARM.PAPERS FAXED OVER TO [facility].CC
--- NOTE | 2020-12-17 13:01 | NUR ---
12/17/2020 1305 EMS HERE TO TRANSPORT PT BACK TO [facility] VIA STRETCHER PAPER WORK GIVEN.TELE REMOVED AND RETURNED TO [facility] DESK.CC
--- NOTE | 2020-12-17 13:49 | NUR ---
12/17/2020 1306 BARAJAS CATHETER REMOVED WITH 10ML OUT OF SYRINGE.EMPTIED APPROX 500ML CLEAR YELLOW URINE FROM BARAJAS BAG.PT TOLERTED WELL.CC
== END 2020-12-17 13:52 | DRG 193 ==
LOC: ED 21:02 → MED/SURG 23:25
PROVIDERS: ADMIT Family Medicine; ATTEND Internal Medicine Endocrinology, Diabetes & Metabolism
DX: J18.8 Other pneumonia, unspecified organism (principal); L89.153 Pressure ulcer of sacral region, stage 3; N39.0 Urinary tract infection, site not specified; I69.351 Hemiplegia and hemiparesis following cerebral infarction affecting right dominant side; Y95 Nosocomial condition; B96.20 Unspecified Escherichia coli [E. coli] as the cause of diseases classified elsewhere; R91.1 Solitary pulmonary nodule; I69.391 Dysphagia following cerebral infarction; R13.19 Other dysphagia; G89.4 Chronic pain syndrome; E78.49 Other hyperlipidemia; I10 Essential (primary) hypertension
CPT/HCPCS: 36415; 36600; 80048; 80053; 80202; 81000; 82805; 83605; 85007; 85027; 87040; 87077; 87086; 87088; 87186; 87502; 87635; 93005; 94640; 94664; 94760; 96365; 99284; J0132; J0282; J0456; J0696; J1650; J2185; J3370; U0003

== ENCOUNTER 2020-12-20 11:37 | Inpatient (IN) | payer OTHER ==
[~2020-12-20 11:37] MED LIST changes: +ASCORBIC ACD500 MG PEG; +LIPITOR40 MG PEG
[2021-01-07] MEDS ORDERED: LEVAQUIN250 MG PO (11:22)
== END 2021-01-20 11:43 | disposition still patient (30) ==
LOC: PAVC 11:37
PROVIDERS: ADMIT Internal Medicine; ATTEND Internal Medicine

== ENCOUNTER 2021-01-02 00:59 | Inpatient (IN) | payer OTHER ==
[~2021-01-02] VITALS: Ht 180.3 cm; Wt 59.6 kg
[2021-01-02 01:01] VITALS: BP 134/75; TEMP 102.9
[2021-01-02 01:47] LABS: PLATELET COUNT 480 K/uL (142-355)
[2021-01-02 02:01] LABS: POTASSIUM 4.2 mmol/L (3.6-5.2); SODIUM 137 mmol/L (136-145)
[2021-01-02 02:06] LABS: PARTIAL THROMBOPLASTIN TIME 22.3 SECONDS (24.5-33.6)
--- NOTE | 2021-01-02 04:29 | NUR ---
RECEIVED REPORT FROM NELSON FREGOSO RN, OF ER DEPARTMENT. RECEIVING NURSE DENIES ANY FURTHER QUESTIONS AT THIS TIME.
[2021-01-02 05:47] VITALS: BP 102/47; TEMP 98.7; Ht 180.3 cm; Wt 59.6 kg
--- NOTE | 2021-01-02 06:03 | NUR ---
@ 0605 01/02/21 PATIENT TO ROOM 1129 VIA STRETCHER FROM ER. 18F BARAJAS WITH CATH BAG TO BEDSIDE WITH APPROXIMATELY 40ML BROWN CONCENTRATED URINE WITH SEDIMENT. IV SITES 20G TO LEFT HAND AND 20G TO RIGHT WRIST, BOTH SITES FLUSHED WITH NS 10ML EACH WITHOUT DIFFICULTY AND SUCTION SET UP AT BEDSIDE. NEW ORDERS NOTED AND CARRIED OUT.
[2021-01-02 07:57] LABS: PLATELET COUNT 291 K/uL (142-355)
[2021-01-02 08:00] VITALS: BP 84/52; TEMP 98.3
[2021-01-02 08:06] LABS: POTASSIUM 4.2 mmol/L (3.6-5.2)
[2021-01-02 16:04] VITALS: BP 99/62; TEMP 97.6
--- NOTE | 2021-01-02 18:05 | NUR ---
PT ADMITTED TO ROOM 1129 FROM [place] WITH STAGE 4 DECUBITUS ON SACRUM. WOUND BED COVERED WITH SLOUGH. DUODERM REMOVED FROM SACRUM WOUND CLEANED WITH NS. NOTIFIED TO COME TO BS TO OBSERVE WOUND. NEW ORDERS GIVEN TO CLEAN WOUND BED WITH 1/2 STRENGTH DAKINS SOLUTION AND PACK WITH 1/4 INCH IODAFORM MOISTENED WITH 1/2 STRENGTH DAKINS. NEW ORDERS CARRIED OUT. SACRAL WOUND 3.4CM X2.4 CM X0.6CM. TUNNELING AT 6 OCLOCK IS 2.1 CM TUNNELING AT 9 OCLOCK IS 3.2 CM TUNNELING AT 11 OCLOCK 2.7 CM
[2021-01-02 19:03] VITALS: BP 81/45; TEMP 97.9
[2021-01-02 23:33] VITALS: BP 90/51; TEMP 97.3
--- NOTE | 2021-01-03 02:38 | NUR ---
PATIENTS CATHCARE COMPLETE. PATIENT TURNED AND REPOSITIONED. PATIENT RESTING. NO GRIMACING OR MOANING NOTED
[2021-01-03 03:34] VITALS: BP 97/52; TEMP 97.1
--- NOTE | 2021-01-03 04:00 | NUR ---
PATIENT PULLED OFF HIS NRB. IT WAS REFITTED TO HIS SUDHEER AND ADJUSTED
[2021-01-03 04:50] LABS: POTASSIUM 3.8 mmol/L (3.6-5.2)
[2021-01-03 04:53] LABS: PLATELET COUNT 269 K/uL (142-355)
[2021-01-03 08:00] VITALS: BP 109/45; TEMP 97.9
--- NOTE | 2021-01-03 08:00 | NUR ---
PT'S WOUND DRESSING WAS CHANGED BY TWAN PIERRE RN WITH THE ASSISTANCE OF HOSPITAL DIRECTOR AND NYLA CHANG RN. PT WAS MEDICATED WITH 2MG OF MORPHINE SULFATE PRIOR TO DRESSING CHANGE. ALL PRIOR PACKING WAS REMOVED FROM WOUND. 4X4'S AND PLAIN PACKING STRIPS WERE SOAKED WITH DANKINS SOLUTION. PLAIN PACKING STRIPS WERE USED TO PACK THE WOUND, 4X4'S WERE USED TO COVER THE WOUND AND AN OPTIFOAM DRESSING WAS PLACED OVER THE TOP. PT DID DEMONSTRATE SOME DISCOMFORT WHILE REPACKING THE INSIDE OF THE WOUND BY MOVING HIS LEGS IN A JERKING MOTION.
[2021-01-03 12:00] VITALS: BP 111/66; TEMP 97.6
--- NOTE | 2021-01-03 12:00 | NUR ---
PT WAS ROLLED TO THE LEFT SIDE BY MOSHE WRIGHT RN. TWO PILLOWS WERE PLACED UNDER PT'S RIGHT SIDE. ANOTHER PILLOW WAS PLACED UNDER THE LEFT LEG TO PREVENT THE PT'S FEET FROM TOUCHING OR RESTING ON THE BED. PT TOLERATED BEING ROLLED WELL.
--- NOTE | 2021-01-03 14:00 | NUR ---
PT WAS TURNED TO THE RIGHT SIDE PROPPED BY TWO PILLOWS UNDER THE LEFT SIDE OF THE BACK. PT WAS TURNED BY WRITER AND PATRICIA MATTHEW CARREON.
[2021-01-03 16:00] VITALS: BP 91/41; TEMP 97.1
--- NOTE | 2021-01-03 16:00 | NUR ---
PT HAS BEEN ROTATED TO THE RIGHT SIDE AND PROPPED WITH PILLOWS. PT WAS GIVEN A PEG TUBE FEEDING WITH 2 ABI DILUTED WITH WATER. PEG WAS FLUSHED WITH 60ML OF WATER BEFORE AND AFTER FEEDING. A TOTAL OF 520ML OF FLUID WAS GIVEN. PEG FLUSHED WITH NO DIFFICULTY AND PT TOLERATED THE FEEDING WELL. PT IS NOW RESTING ON THE RIGHT SIDE AT A 45 DEGREE ANGLE.
--- NOTE | 2021-01-03 17:20 | NUR ---
PT HAS EXHIBITED INCREASED AGITATION SINCE BEING ROLLED TO THE RIGHT SIDE AND FED. PT WAS ASKED IF HE WAS IN PAIN, PT BEGAN TO MOAN LOUDER. PRN DOSE OF MORPHINE SULFATE WAS GIVEN.
--- NOTE | 2021-01-03 19:50 | NUR ---
RESTING WITH EYES CLOSED, NO S/S OF PAIN OR DISTRESS NOTED, IV INTACT, BARAJAS PATENT, O2 AT 3LPM VIA NC, PEG INTACT, WILL MONITOR CLOSELY, RAILS UP, BED IN LOW POSITION.
[2021-01-03 20:00] VITALS: BP 101/58; TEMP 98.5
--- NOTE | 2021-01-03 22:00 | NUR ---
PT AROUSES TO PULPIT OPERATOR BEING AT BEDSIDE WITH NO ACUTE DISTRESS NOTED, EYES OPEN PT LOOKING AROUND, RESP RATE NONLABORED, O2 AT 3LPM VIA NC, BARAJAS PATENT DRAINING TO BEDSIDE, IV INTACT TO R WRIST WITH NS INFUSING AT 150ML/HR, COUGHING NOTED AT TIMES. PEG TUBE INTACT, NO RESIDUAL NOTED, GAVE TWO ABI FEEDING WITH 60ML WATER BEFORE AND GAVE 100ML AFTER FEEDING. WILL MONITOR CLOSELY, RAILS UP, BED IN LOW POSITION, HOB ELEVATED.
--- NOTE | 2021-01-03 23:10 | NUR ---
PT RESTING WITH EYES CLOSED IN BED WITH LIGHT SNORNING NOTED, NO S/S OF PAIN OR ACUTE DISTRESS NOTED, WILL MONITOR CLOSELY, RAILS UP, BED IN LOW POSITION, HOB ELEVATED.
[2021-01-04] VITALS: BP 99/49; TEMP 98.2
--- NOTE | 2021-01-04 00:42 | NUR ---
RESTING IN BED WITH EYES CLOSED, NO S/S PAIN OR DISTRESS NOTED, REPOSITOINED IN BED Q 2 HOURS, FEET ELEVATED ON PILLOW, IV INTACT WITH NS ONGOING AT 150ML/HR, O2 AT 3LPM VIA NC, COUGH NOTED AT TIMES, BARAJAS PATENT DRAINING TO BEDSIDE, PEG TUBE INTACT, WILL MONITOR CLOSELY, RAILS UP X3, BED IN LOW POSITION, HOB ELEVATED.
--- NOTE | 2021-01-04 02:06 | NUR ---
RESTING WITH EYES CLOSED AND NO S/S OF PAIN OR DISTRESS NOTED, WILL MONITOR CLOSELY, RAILS UP, BED IN LOW POSITION.
--- NOTE | 2021-01-04 02:55 | NUR ---
PT RESTING WITH EYES CLOSED, NO S/S OF PAIN OR DISTRESS NOTED, IV INTACT WITH FLUID ONGOING, O2 AT 3LPM VIA NC, BARAJAS PATENT, PEG TUBE INTACT. PEG NOTE 10ML RESIDUAL, GAVE FEEDING OF TWOCAL 1 CAN GAVE 60ML WATER BEFORE AND AFTER FEEDING. HOB REMAINS ELEVATED, NOTE PT SEEMS TO GET AGITATED WHEN PRINTMAKER GIVES CARE HE MOANS OUT BUT CALMS DOWN WHEN PRINTMAKER IS FINISHED WITH CARE AND LEAVES ROOM. WILL MONITOR CLOSELY, RAILS UP, BED IN LOW POSITION.
[2021-01-04 04:00] VITALS: BP 99/48; TEMP 97.5
[2021-01-04 05:35] LABS: PLATELET COUNT 260 K/uL (142-355)
[2021-01-04 05:49] LABS: POTASSIUM 3.9 mmol/L (3.6-5.2)
[2021-01-04 08:00] VITALS: BP 104/52; TEMP 98.2
--- NOTE | 2021-01-04 09:00 | NUR ---
WHILE GIVING PT MORNING MEDS THROUGH PEG TUBE IT WAS NOTED THAT THERE IS A SMALL CRACK IN THE PURPLE Y OF THE PEG TUBE. WHILE GIVING ANY FLUIDS THROUGH THE TUBE THERE IS SMALL AMOUNTS OF LEAKAGE. PURCHASING WAS CONTACTED FOR A NEW Y PEICE BUT DO NOT CURRENTLY HAVE ONE. [facility] STATED THAT THE [facility] HAS JUST RECIEV[facility] A NEW PEG TUBE FOR A RESIDENT'S THAT HAD CRACKED ALSO. [facility] WAS CONTACTED AND [facility]ER APPRENTICE WAS TOLD THAT DR. FLANAGAN WOULD BE NOTIFIED TO COME LOOK AT THE PEG TUBE. PEG IS CURRENTLY WRAPPED IN A CHUX PAD TO PREVENT LEAKAGE ON THE BED.
--- NOTE | 2021-01-04 09:49 | NUR ---
NOTIFIED MD THAT HOME MEDS HAVE NOT BEEN RESTARTED AT THIS TIME. MD STATED THAT HE WILL REVIEW THEM. MADE MD AWARE THAT PT HAS NOT HAD A BOWEL MOVEMENT SINCE BEGINNING OF STAY AND WHEN [facility] WAS CONTACTED THEY WERE UNSURE OF WHEN THE LAST BM WAS. MD GAVE ORDER FOR COLACE 100MG BID. MD CHANGED ORDER ON IV FLUIDS TO KVO DUE TO PT NOW TOLERATING FEEDINGS.
--- NOTE | 2021-01-04 11:00 | NUR ---
PT RECIEVED THE 1100 FEEDING, 1 CAN OF 2 ABI MIXED WITH WATER AND 60ML FLUSH BEFORE AND AFTER FEEDING, 600ML IN TOTAL. MILK OF MAGNESIA WAS GIVEN ALSO DUE TO PT'S LACK OF A BOWEL MOVEMENT SINCE ARRIVAL. PT TOLERATED FEEDING WELL AND IS NOW RESTING AT A 45 DEGREE ANGLE.
[2021-01-04 12:00] VITALS: BP 116/44; TEMP 97.8
--- NOTE | 2021-01-04 13:00 | NUR ---
PT HAS BEEN ROLLED TO THE LT SIDE, PROPPED BY PILLOWS. BED LINENS HAVE BEEN CHANGED. PT SHOWED NAD DURING POSITION CHANGE. PT IS NOW RESTING IN HF NAD IS NOTED AT THIS TIME.
[2021-01-04 16:00] VITALS: BP 116/60; TEMP 99.1
--- NOTE | 2021-01-04 16:00 | NUR ---
PT RECIEVED PEG TUBE FEEDING OF 2 ABI WITH 60ML FLUSH BEFORE AND AFTER FEEDING. PT WAS ALSO GIVEN ACETAMINOPHEN DUE TO SLIGHT FEVER OF 99.1F. STILL EXPERIENCING DIFFICULTY WITH LEAKAGE DUE TO THE CRACK IN THE PURPLE Y OF THE PEG TUBE. PT TOLERATED FEEDING WELL, CURRENTLY RESTING WITH EYES CLOSED WITH HOB UP AT 45 DEGREES.
--- NOTE | 2021-01-04 18:00 | NUR ---
PT HAD DRESSING ON SACRUM CHANGED BY FINISHING AREA SUPERVISOR WITH ASSISTANCE FROM NYLA CHANG RN AND JA CASTRO CNA. WOUND WAS REPACKED WITH PACKING STRIPS AND COVERED WITH 4X4S SOAKED IN DAKIN SOLUTION AND COVERED COMPLETELY BY OPTIFOAM. BRIEF WAS CHANGED AND PT ROTATED TO THE RT SIDE. PT WAS PREMEDICATED WITH PRN MORPHINE PRIOR TO DRESSING CHANGE. PT IS NOW SITTING IN [facility].
[2021-01-04 20:00] VITALS: BP 115/58; TEMP 97.8
--- NOTE | 2021-01-04 20:30 | NUR ---
ENTERED PATIENT'S ROOM. PATIENT RESTING QUIETLY WITH EYES CLOSED. RESPIRATIONS EVEN AND UNLABORED. NAD NOTED. 20G TO RIGHT WRIST INFUSING NS @ 30ML/HR. 16FR BARAJAS DRAINING CLEAR, YELLOW URINE TO BEDSIDE. NO S/S OF PAIN OR DISCOMFORT NOTED. BED LOCKED AND IN LOWEST POSITION. PATIENT RECENTLY TURNED ONTO RIGHT SIDE BY PREVIOUS SHIFT.
--- NOTE | 2021-01-04 22:30 | NUR ---
PEG TUBE RESIDUAL CHECKED AT THIS TIME. <5CC OF RESIDUAL REMOVED. PM MEDICATION GIVEN ALONG WITH 1 CAN OF 2CAL PER MD ORDERS. APPROX. 700CC OF FLUID GIVEN AT THIS TIME. PATIENT TOLERATED WELL. HOB ELEVATED AT 45 DEGREES. BED LOCKED AND IN LOWEST POSITION. NAD NOTED.
[2021-01-05] VITALS: BP 111/64; TEMP 97.8
--- NOTE | 2021-01-05 00:10 | NUR ---
PATIENT CHECKED, CHANGED AND TURNED TO RIGHT SIDE LYING POSITION. DRESSING TO COCCYX AREA CLEAN/DRY/INTACT AT THIS TIME. HOB ELEVATED TO 45 DEGREES.
--- NOTE | 2021-01-05 00:20 | NUR ---
PATIENT REPOSITIONED ONTO LEFT SIDE AND PILLOWS PLACED BEHIND PATIENT'S TORSO FOR SUPPORT AND UNDER EACH HIP TO RELIEVE PRESSURE FROM SACRUM, LENORA LOWER EXT ARE FLOATING ON PILLOWS AND PILLOW PLACED BETWEEN LOWER EXT FOR SUPPORT.
--- NOTE | 2021-01-05 02:15 | NUR ---
IN WITH PCT TO TURN PATIENT. TURNED ON LEFT SIDE. KNEES AND HEELS FLOATED. SURE PREP APPLIED TO LENORA HEELS. NO RESIDUAL NOTED WITH PEG TUBE. 2CAL FEEDING ADMINISTERED AT THIS TIME. FLUSHED WITH 60CC OF WATER BEFORE AND AFTER. PATIENT TOLERATED WELL. FEEDING TUBE IS STILL NOTED TO BE LEAKING. THERE WAS A SMALL CRACK NOTED BETWEEN FEEDING TUBE AND OTHER PORT. HOB ELEVATED TO 45 DEGREES DURING AND AFTER FEEDING. BED LOCKED AND IN LOWEST POSITION. NAD NOTED.
[2021-01-05 04:00] VITALS: BP 142/77; TEMP 97.5
[2021-01-05 05:25] LABS: PLATELET COUNT 280 K/uL (142-355)
--- NOTE | 2021-01-05 06:00 | NUR ---
IN WITH PCT TO TURN PATIENT ONTO RIGHT SIDE. PEG CHECKED FOR RESIDUAL. SOME RESIDUAL NOTED- 0600 FEEDING WAS HELD AT THIS TIME. TYLENOL 1,000MG WAS GIVEN VIA PEG TUBE TO HELP WITH PATIENT'S PAIN. WRAP REMOVED AND CHANGED AROUND IV SITE. 20G TO RIGHT WRIST PATENT AND INTACT. NO ERYTHEMA OR SWELLING NOTED. PEG TUBE SITE CLEANSED WITH NS AND NEW GAUZE APPLIED. MOUTH CARE ALSO PERFORMED DURING THIS SHIFT. 16FR BARAJAS DRAINING TO BEDSIDE. HOB ELEVATED TO 45 DEGREES. BED LOCKED AND IN LOWEST POSITION.
[2021-01-05 08:00] VITALS: BP 140/72; TEMP 98
--- NOTE | 2021-01-05 09:21 | NUR ---
PT REPOSITIONED, HOB ELEVATED, PEG PLACEMENT CHECKED AND VERIFIED BY AUSCULTATION-TUBE FLUSHED. MOUTH CARE PROVIDED. BED LOW, LOCKED, SR UP X2 FOR SAFETY. CALL LIGHT IN EASY REACH. WILL CONTINUE TO MONITOR.
--- NOTE | 2021-01-05 11:21 | NUR ---
RESIDUAL 25CC NOTED- FEEDING HELD.
[2021-01-05 12:00] VITALS: BP 144/68; TEMP 98.1
[2021-01-05 16:00] VITALS: BP 161/73; TEMP 98.2
--- NOTE | 2021-01-05 16:18 | NUR ---
PEG PLACEMENT VERIFIED BY AUSCULTATION, NO RESIDUAL NOTED. TWOCAL FEEDING ADMINISTERED PER ORDER. LEAKING NOTED AROUND CRACK AT BIFURCATION OF PEG TUBE. HOB ELEVATED, TUBE WRAPPED IN TOWEL. PT MARLIN FEEDING FAIR.PT SX WITH MOD AMT THICK, CLEAR SECRETIONS NOTED.
[2021-01-05 20:20] VITALS: BP 131/82; TEMP 98
--- NOTE | 2021-01-05 20:35 | NUR ---
PATIENT SUCTIONED AT THIS TIME WITH REMOVAL OF COPIOUS AMOUNTS OF THICK WHITE SECRETIONS AND MOUTH CARE PERFORMED.
--- NOTE | 2021-01-05 21:10 | NUR ---
PATIENT REPOSITIONED ONTO LEFT SIDE, PILLOWS PLACED BEHIND PATIENT SUPPORT AND PLACED UNDER PATIENT'S HIP TO RELIEVE PRESSURE OFF SACRUM. PATIENT SUCTIONED WITH REMOVAL OF MODERATE AMOUNT OF THICK WHITE SECRETIONS REMOVED. PATIENT TOLERATED WELL.
[2021-01-06 00:03] VITALS: BP 140/72; TEMP 97.6
--- NOTE | 2021-01-06 02:00 | NUR ---
RESIDUAL ASSESSED IN PEG TUBE, NO RESIDUAL NOTED AT THIS TIME. PATIENT'S PEG TUBE FLUSHED WITH FREE WATER 60ML AND FED GLUCERNA 1.2 AND FLUSHED WITH 60ML OF FREE WATER. PATIENT TOLERATED WELL. PATIENT PLACED IN HIGH FOWLERS PRIOR TO PEG TUBE FEEDING AND REMAINS IN HIGH FOWLERS.
--- NOTE | 2021-01-06 02:34 | NUR ---
PATIENT SUCTIONED WITH COPIOUS AMOUNTS OF THICK WHITE SECRETIONS REMOVED. PATIENT REMAINS IN HIGH FOWLERS POSITION AT THIS TIME ON RIGHT SIDE.
--- NOTE | 2021-01-06 03:25 | NUR ---
SUCTIONED OUT THICK MODERATE WHITE SPUTUM FROM PT'S ORAL CAVITY IN A HIGH-FOWLERS POSITION. PT MAKING AUDIBLE, GURGLING SOUNDS AT THIS TIME.
[2021-01-06 04:00] VITALS: BP 126/78; TEMP 96.9
[2021-01-06 04:32] LABS: PLATELET COUNT 263 K/uL (142-355)
[2021-01-06 04:45] LABS: POTASSIUM 3.8 mmol/L (3.6-5.2)
[2021-01-06 08:00] VITALS: BP 136/72; TEMP 98
--- NOTE | 2021-01-06 09:00 | NUR ---
20G PERIPHERAL IV TO LEFT WRIST INFILTRATED AND EDEMATOUS, D/C AT THIS TIME. [employer] ATTEMPTED TO INSERT NEW IV. [employer] STUCK 2 TIMES AND WAS UNSUCCESSFUL. CHARGE NURSE NOTIFIED.
--- NOTE | 2021-01-06 10:30 | NUR ---
20 G PERIPHERAL IV INITIATED IN LEFT AC BY MARIAA MORALES LPN. PATIENT TOLERATED WELL. IV FLUIDS RESTARTED AT 30 ML/HR. PATIENT SUCTIONED AT THIS TIME WITH MODERATE WHITE/ CLEAR SECRETIONS FROM MOUTH. PATIENT HAS A PRODUCTIVE COUGH. PATIENT TOLERATED WELL. NAD NOTED. WILL CONTINUE TO MONITOR.
[2021-01-06 12:00] VITALS: BP 139/80; TEMP 98.3
[2021-01-06 16:00] VITALS: BP 140/79; TEMP 98.1
--- NOTE | 2021-01-06 16:30 | NUR ---
PATIENT FED 667ML TOTAL VIA PEG TUBE. ONE CAN OF 2 ABI GIVEN WITH EQUAL PARTS WATER. FLUSHED WITH 60 ML BEFORE AND AFTER FEEDING. PATIENT HOB ELEVATED TO 30 DEGREES. PATIENT TOLERATED WELL. NAD NOTED. SUCTION CANISTER AND TUBING CHANGED. WILL CONTINUE TO MONITOR.
--- NOTE | 2021-01-06 17:39 | NUR ---
STAGE 4 3.3 CM X 2.2 CM X 1.6 WITH TUNNELING AT 6 OCLOCK 2.4CM TUNNELING AT 9 OCLOCK 3.4 CM TUNNELING AT 11 OCLOCK 2.2 CM WOUND CARE PROVIDED PER MD CABRAL
[2021-01-06 20:00] VITALS: BP 140/94; TEMP 98.4
--- NOTE | 2021-01-06 20:10 | NUR ---
PATIENT'S SPO2 IS 89% AT THIS TIME. RESPIRATORY AT BEDSIDE AND PLACED ON NC 2LPM.
--- NOTE | 2021-01-06 20:23 | NUR ---
PT. MOANING AND DIAPHORETIC. SUCTIONED PT, PT HAD THICK, WHITE, COPIOUS SPUTUM REMOVED FROM ORAL CAVITY. MOUTH CARE PERFORMED AT THIS TIME. TYLENOL AND ATIVAN GIVEN AT THIS TIME DUE TO INCREASED AGITATION.
--- NOTE | 2021-01-06 21:22 | NUR ---
PLACED PT ON V/M AT 35% DUE TO SPO2 DROPPING TO 77% PER NURSE.
--- NOTE | 2021-01-06 23:00 | NUR ---
20 ML RESIDUAL NOTED. FEEDING HELD AT THIS TIME.
[2021-01-07 00:27] VITALS: BP 125/78; TEMP 97.9
[2021-01-07 04:29] VITALS: BP 123/65; TEMP 97.5
--- NOTE | 2021-01-07 04:31 | NUR ---
LATE ENTRIES: 01/06/21 @ 2200 RECEIVED NEW ORDERS FROM ER PHYSICIAN FOR SCAPOLOMIN PATCH, NOTED AND CARRIED OUT AND PATCHED PLACED BEHIND LEFT EAR. PATIENT REPOSITIONED ONTO LEFT SIDE WITH PILLOWS PLACED UNDER LENORA HIPS AND HEELS ARE FLOATING. 01/07/21 @ 0035 SPO2 97%, VENTIMASK REMOVED AND NC AT 2LPM PLACED ON PATIENT. 01/07/21 @ 0100 SPO2 97% AND RECEIVING OXYGEN VIA NC A@ 2LPM. 01/07/21 @ 0205 PATIENT GIVEN A BATH AT THIS TIME AND SHEETS CHANGED. PATIENT TOLERATED WELL. 01/07/21 @ 0225 SPO2 98%. OXYGEN D/C'D AT THIS TIME. PATIENT'S PEG TUBE ASSESSED WITH NO RESIDUAL NOTED AT THIS TIME, PEG TUBE FLUSHED WITH 60ML FREE FLOW WATER AND FED GLUCERNA 2 X1 CAN AND FLUSHED WITH ADDITIONAL 60ML FREE FLOW WATER WITHOUT DIFFICULTY. PATIENT TOLERATED WELL. PATIENT IN HIGH FOWLERS POSITION BEFORE PEG TUBE FEEDING BEGAN AND REMAINS IN HIGH FOWLERS POSITION. 01/07/21 @ 0250 WHILE REPOSITIONING PATIENT ONTO RIGHT SIDE, PEG TUBE LEAKED AND SATURATED GOWN AND CHUX UNDER PATIENT. PATIENT GIVEN ADDITIONAL BATH WITH BED LINENS AND CHUX CHANGED AT THIS TIME. LENORA HIPS AND HEELS FLOATING ON PILLOWS. PATIENT REMAINS IN HIGH FOWLERS POSITION.
[2021-01-07 05:12] LABS: PLATELET COUNT 297 K/uL (142-355)
[2021-01-07 05:20] LABS: POTASSIUM 3.8 mmol/L (3.6-5.2)
[2021-01-07 08:00] VITALS: BP 116/70; TEMP 97.9
--- NOTE | 2021-01-07 08:46 | NUR ---
01/07/[address] FLANAGAN ABOUT COMING TO REPLACE PEG TUBE DUE TO LEAKING,DR. FLANAGAN STATED HE WILL BE AROUND ABOUT 12 NOON TO REPLACE IT.CC
--- NOTE | 2021-01-07 10:19 | NUR ---
01/07/21 1010 WOUNDCARE NURSE ALSO KURT FOSTER RN PRESENT IN ROOM TO VISIT PATIENT.PT POSSIBLY WILL BE DISCHARGED BACK TO [facility] TODAY IF SO WOUNDCARE NURSE KELSEY STATED NO NEED TO DO WOUNDCARE TO SACRAL AREA AT THIS TIME SHE WILL HAVE TO CHANGE DSY .BUT IF HE DOESNOT COME BACK DSY WILL HAVE TO BE CHANGED LATER.PT TRNED AND REPOSTIONED TO LEFT SIDE TOLERATED WELL.DSY TO SACRAL AREA CLEAN AND INTACT.CALL LIGHT WITHIN REACH.SIDE RAILS UP X 2.CC
[2021-01-07] MEDS ORDERED: LEVAQUIN250 MG PO (11:22)
--- NOTE | 2021-01-07 11:46 | NUR ---
01/07/21 1145 PT TO BE DISCHARGED BACK TO [facility] NURSE LELA ACCEPTED REPORT.ALSO KURT FOSTER IS AWARE OF PT COMING BACK.PT WILL CONTINUE PRIOR ORDERS ALSO WILL BE GIVEN LEVAQUIN 500MG VIA PEG TUBE X 4 DAYS.REPORTED TO NURSE PT WILL HAVE PEG TUBE CHANGED IN [facility] PER WHICH IS AWARE TODAY APPROX NOON.KELSEY WOUNDCARE NURSE WILL CONTINUE WITH SACRUM TREATMENT.BARAJAS CATHETER REMOVED WITH CLEAR YELLOW URINE APPROX 700ML IN BARAJAS BAG.SALINE LOCK REMOVED TO LT AC APPLIED 2X2 SECURED WITH TAPE.CC 01/07/21 EMS NOTIFIED TO CARRY PT BACK TO [facility] AT 1145.CC 01/07/21 LE 1030SPOKE WITH PHARMACY KAREN STATED SHE WILL SPEAK WITH CONCERNING MEDICATION FOSFOMYCINE WHICH IS NOT AVAILABLE TO BE GIVEN AT THIS TIME.KAREN STATED SHE WILL TALK TO CONCERNING DOSAGE THAT COULD BE GIVEN AT [facility] IF SHE CONTINUES MEDICATION.CC
--- NOTE | 2021-01-07 12:42 | NUR ---
01/07/21 1210 EMS HERE TO CARRY PT BACK TO [facility]IA [facility]RETCHER.INFORMATION GIVEN TO EMS.CC
== END 2021-01-07 12:10 | DRG 871 ==
LOC: ED 00:59 → MED/SURG 03:07
PROVIDERS: ADMIT Hospitalist; ATTEND Internal Medicine Endocrinology, Diabetes & Metabolism
DX: A41.89 Other specified sepsis (principal); L89.154 Pressure ulcer of sacral region, stage 4; J18.8 Other pneumonia, unspecified organism; J96.21 Acute and chronic respiratory failure with hypoxia; N39.0 Urinary tract infection, site not specified; I69.354 Hemiplegia and hemiparesis following cerebral infarction affecting left non-dominant side; R62.7 Adult failure to thrive; I69.391 Dysphagia following cerebral infarction; I69.321 Dysphasia following cerebral infarction; R13.10 Dysphagia, unspecified; Z93.1 Gastrostomy status; E78.49 Other hyperlipidemia; Y95 Nosocomial condition; B96.20 Unspecified Escherichia coli [E. coli] as the cause of diseases classified elsewhere
CPT/HCPCS: 36415; 36600; 51702; 80048; 80053; 80200; 80202; 80320; 81000; 82550; 82805; 83605; 83880; 84484; 85027; 85610; 85730; 87040; 87077; 87086; 87088; 87186; 87635; 87651; 90658; 93005; 94640; 94664; 94760; 96360; 96365; 96366; 96375; 99285; J0132; J1100; J1650; J2060; J2270; J2543; J3260; J3370; J3490; U0003

== ENCOUNTER 2021-01-20 12:10 | Inpatient (IN) | payer OTHER ==
[~2021-01-20 12:10] MED LIST changes: +LEVAQUIN250 MG PO
[2021-02-05] MEDS ORDERED: BENEPROTEIN6 GM PO (15:06)
[2021-02-05] MEDS ORDERED: ZN METHIONAT50 MG PEG (15:09)
== END 2021-02-19 11:24 | disposition still patient (30) ==
LOC: PAVC 12:10
PROVIDERS: ADMIT Internal Medicine; ATTEND Internal Medicine

== ENCOUNTER 2021-02-04 11:11 | Outpatient (CLI) | payer OTHER ==
[2021-02-05] MEDS ORDERED: BENEPROTEIN6 GM PO (15:06)
[2021-02-05] MEDS ORDERED: ZN METHIONAT50 MG PEG (15:09)
== END 2021-02-04 21:20 | disposition home or self-care (01) ==
LOC: RAD 11:11
PROVIDERS: ATTEND Internal Medicine
DX: R05 Cough (principal); R09.3 Abnormal sputum
CPT/HCPCS: 87070; 87077; 87186; 87205

== ENCOUNTER 2021-02-05 09:39 | Inpatient (IN) | payer OTHER ==
[2021-02-05] VITALS (10 sets, daily range): BP systolic 84–114; BP diastolic 49–67; TEMP 97.9–100.8; Ht 180.3 cm; Wt 60.9 kg
[~2021-02-05] VITALS: Ht 180.3 cm; Wt 60.9 kg
[2021-02-05 10:30] LABS: PLATELET COUNT 457 K/uL (142-355)
[2021-02-05 10:44] LABS: POTASSIUM 3.8 mmol/L (3.6-5.2); SODIUM 143 mmol/L (136-145)
[2021-02-05 10:52] LABS: PARTIAL THROMBOPLASTIN TIME 23.6 SECONDS (24.5-33.6)
--- NOTE | 2021-02-05 14:15 | NUR ---
REC'D PT VIA STRECTHER FROM ER. RESP WITH PT ON ARRIVAL TO ROOM 1129. PT TRANSPORTED FROM ER TO CT ON NON-REBREATHER . RESP INFOMRED MD THAT PT SEEMED TO BE TOELRATING NR SLIGHTLY BETTER VS HIGH FLOW. DR ARNETT STATED THAT PT COULD BE LEFT ON NR LONG HE TOELRATED. PT RESP NOTED TO BE SHALLOW AND INCREASED AT 32. SATS 98% TEMP AX 100. MD IN ROOM AT BS AT THIS TIME. PT CAME TO CT WITH 16FR BARAJAS INTACT AND DRAINING TO BS. APPROX 500ML OF PURLENT URINE NOTED IN BARAJAS BAG. MD AWARE. PT NOTED TO HAVE FIXATED STARE TO CEILING. WILL CONT TO MONITOR.
[2021-02-05] MEDS ORDERED: BENEPROTEIN6 GM PO (15:06)
[2021-02-05] MEDS ORDERED: ZN METHIONAT50 MG PEG (15:09)
--- NOTE | 2021-02-05 19:15 | NUR ---
RESTING IN BED WITH EYES CLOSED, NO S/S OF PAIN OR DISTRESS NOTED, NRB MASK IN USE, WILL MONITOR CLOSELY, HOB ELEVATED, RAILS UP X3, CALL LIGHT IN REACH, BED IN LOW POSITION.. TELEMETRY UNIT IN USE.
--- NOTE | 2021-02-05 22:50 | NUR ---
NO RESIDUAL NOTED VIA PEG TUBE. FLUSHED WITH 60ML WATER BEFORE AND AFTER PEG FEEDING OF 2 ABI HN 1 CAN MIXED WITH EQUAL PARTS WATER. WILL MONITOR CLOSELY, RAILS UP X3, BED IN LOW POSITION, CALL LIGHT IN REACH, HOB REMAINS ELEVATED DUE TO PEG TUBE/ASPIRATION PRECAUTIONS.
--- NOTE | 2021-02-05 23:04 | NUR ---
PT RESTING WITH EYES CLOSED, NO ACUTE DISTRESS NOTED, 20G IV INTACT TO R HAND WITH NS INFUSING AT 125ML/HR, 16F BARAJAS PATENT DRAINING TO BEDSIDE, NRB MASK IN USE AT 15LPM, REPOSITIONED PT TO R SIDE, FEET ELEVATED ON PILLOW. PT AROUSES OPENS EYES BUT DOES NOT SPEAK TO BOARD WRITER, DID HOLD ON TO SIDE RAIL STAFF TURNED HIM. NOTE RED AREA TO TOP OF LEFT FOOT WHERE PT KEEPS CROSSING HIS FEET. WILL MONITOR, RAILS UP X3, BED IN LOW POSITION, CALL LIGHT IN REACH, HOB REMAINS ELEVATED FOR ASPIRATION PRECAUTIONS/PEG TUBE. PEG TUBE INTACT TO ABD.
[2021-02-06] VITALS: BP 93/45; TEMP 99.8
--- NOTE | 2021-02-06 00:54 | NUR ---
RESTING WITH EYES CLOSED, NO S/S OF PAIN OR DISTRESS NOTED, BARAJAS PATENT, IV INTACT WITH NS INFUSING AT 125ML/HR, O2 IN USE VIA NRB MASK, TELEMETRY IN USE WITH REGULAR RATE IN 70S, PEG TUBE INTACT TO ABD. WILL MONITOR, RAILS UP X3, BED IN LOW POSITION, CALL LIGHT IN REACH.
--- NOTE | 2021-02-06 03:00 | NUR ---
RESTING WITH EYES CLOSED IN BED, NO S/S OF ACUTE DISTRESS NOTED, TELEMETRY IN USE, IV INTACT TO R HAND WITH NS INFUSING AT 125ML/HR, BARAJAS PATENT DRAINING TO BEDSIDE, PT BEING TURNED OFTEN AND FEET ELEVATED ON PILLOW, PEG TUBE INTACT. WILL MONITOR, RAILS UP, BED IN LOW POSITION HOB ELEVATED, CALL LIGHT IN REACH.
--- NOTE | 2021-02-06 03:50 | NUR ---
ENTERED ROOM TO FIND PT HOLDING ON TO IV TUBING SLIGHTLY PULLING AT IT ON TOP OF HIS R HAND. ENCOURAGED PT TO NOT PULL ON IV TUBING AND EXPLAINED THAT HE GETS HIS ANTIBIOTICS VIA IV. SEVERAL MINUTES LATER IV PUMP BEEPING OCCLUSION. IV SITE WILL NOT FLUSH AND NO BLOOD RETURN. REMOVED TAPE AND TEGADERM FROM SITE TO FIND IV CATH PULLED OUT SLIGHTLY AND BENT. IV D/C(SEE IV MANAGEMENT), SEMICONDUCTOR PACKAGES TESTER WILL START NEW IV SITE. NO S/S OF ACUTE DISTRESS NOTED. PT DOES REMAIN ALERT WHEN AWAKE AND WILL FOLLOW SIMPLE COMMAND LIKE SQUEEZES SEMICONDUCTOR PACKAGES TESTER'S HAND WHEN ASKED TO. RAILS UP, BED IN LOW POSITION, CALL LIGHT IN REACH.
[2021-02-06 04:00] VITALS: BP 104/56; TEMP 99.1
--- NOTE | 2021-02-06 06:10 | NUR ---
ENTERED PT'S ROOM TO FIND HIM AWAKE AND ALERT PT WAVES L ARM AT WARD AIDE THEN POINTS AT HIS NRB MASK. NOTE PT PULLING ON HIS NRB MASK AND SQUEEZED ALL THE AIR OUT OF BAG ON NRB MASK. FILLED BAG BACK UP AND ENCOURAGED PT TO NOT MESS WITH NRB REMINDED HIM THAT IT WAS HIS OXYGEN. PT THEN STARTING MAKING NOISE OUT LOUD AND PT NOTED TO BE TRYING TO COUGH COUGH VERY WEAK. NO RESIDUAL NOTED VIA PEG TUBE, FLUSHED WITH 60ML WATER BEFORE AND AFTER FEEDING. GAVE FEEDING OF 2 ABI HN 1 CAN WITH EQUAL PARTS WATER VIA PEG. PT TOLERATED WITH NO PROBLEM. HOB REMAINS IN HIGH SOUZA'S DUE TO PEG FEEDING. PT REPOSITIONED FROM SIDE TO BACK AND FEET ELEVATED. IV INTACT TO R FA WITH NS INFUSING AT 125ML/HR, BARAJAS PATENT DRAINING TO BEDSIDE, PEG TUBE INTACT. WILL CONTINUE TO MONITOR CLOSELY, RAILS UP X3, BED IN LOW, CALL LIGHT IN REACH. POSITION, CALL LIGHT IN REACH. PT HOLDING NRB MASK WITH L HAND.
[2021-02-06 08:00] VITALS: BP 104/49; TEMP 97.9
--- NOTE | 2021-02-06 08:14 | NUR ---
PT IS EXHIBITING GARGLING, RT HAS BEEN CONTACTED AND SUCTION HAS BEEN SET UP IN THE ROOM. PT HAS BEEN SUCTIONED AND SOUNDS MORE CLEAR.
--- NOTE | 2021-02-06 09:00 | NUR ---
CONTACTED [facility] ABOUT FEEDING SCHEDULE. EMPLOYEE FROM [employer] STATED THAT THEY FEED PT AT 0600,1100,1600, 2100, 0200. EMPLOYEE CLARIFIED THAT HE DOES RECIEVE ONE FULL CAN OF 2 ABI PER FEEDING. EMPLOYEE ALSO CLARIFIED THAT DRESSING CHANGES ARE DONE DAILY.
--- NOTE | 2021-02-06 09:30 | NUR ---
ENTERED PT'S ROOM, PT IS LAYING IN THAT BED WITH EYES OPEN. PT HAS PULLED OF NONREBREATHER MASK. FOOD PRESERVATION SCIENTIST REPLACED THE MASK AND TIGHTENED THE STRAPS. FOOD PRESERVATION SCIENTIST RE-EDUCATED PT TO KEEP THE MASK ON.
--- NOTE | 2021-02-06 11:00 | NUR ---
PT RECIEVED PEG TUBE FEEDING OF 2 ABI WITH EQUAL PART WATER. PT TOOK IN ALMOST ALL OF FEEDING ONLY LACKING ABOUT 100 ML BEFORE TUBE STARTED SHOWING RESIDUAL COMING BACK UP TOWARDS PORT. TUBE WAS FLUSHED WITH 60 ML AND CLOSED. PATIENT IS NOW RESTING WITH HOB AT 45 DEGREES.
[2021-02-06 12:00] VITALS: BP 96/51; TEMP 97.7
[2021-02-06 12:06] LABS: PLATELET COUNT 227 K/uL (142-355)
[2021-02-06 12:26] LABS: POTASSIUM 3.8 mmol/L (3.6-5.2)
--- NOTE | 2021-02-06 12:34 | NUR ---
PT WAS MOANING AND GRIMACING, BROTHEL KEEPER GAVE PT PRN DOSE OF MORPHINE. PT HAS BEEN ROLLED TO THE RIGHT SIDE WITH PILLOWS BEING USED SUPPORT. PT TOLERATED BEING ROLLED WELL. PT IS NO LONGER ON NONREBREATHER MASK BUT IS NOW ON NASAL CANULA. PT IS NOW SITTING IN HF RESTING WITH EYES CLOSED. NAD IS NOTED AT THIS TIME.
--- NOTE | 2021-02-06 13:25 | NUR ---
PT IS MAKING LOUD GARGLED NOISES AND SOUNDS IF HE IS CHOKING. EMAIL DEPLOYMENT SPECIALIST USED YANKER TO SUCTION PT'S MOUTH. YELLOWISH MUCOUS WAS SUCTIONED, PT SOUNDS BETTER. WILL CONTINUE TO MONITOR.
--- NOTE | 2021-02-06 13:30 | NUR ---
PT WAS ROLLED TO LEFT SIDE BY AND JA CASTRO CNA. PT IS SUPPORTED BY PILLOWS AND BEDRAILS ARE UP X3. HOB IS RAISED TO 30 DEGREES. PT TOLERATED BEING ROLLED WELL.
[2021-02-06 16:00] VITALS: BP 96/47; TEMP 97.7
--- NOTE | 2021-02-06 16:00 | NUR ---
PT HAD FEEDING THROUGH PEG TUBE CONSISTING OF 1 CAN OF 2 ABI AND EQUAL AMOUNT WATER. TUBE WAS FLUSHED WITH 60ML BEFORE AND AFTER FEEDING. PT TOLERATED FEEDING WELL AND IS NOW SITTING WITH HOB AT 45 DEGREES. NAD IS NOTED AT THIS TIME. 20 ML OF RESIDUAL WAS DRAWN BACK PRIOR TO FEEDING.
--- NOTE | 2021-02-06 18:20 | NUR ---
DRESSING CHANGE WAS PERFORMED ON PT'S SACRAL WOUND. 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 TIMBER BUCKER PERFORMED DRESSING CHANGE INSTRUCTED BY [facility] EMPLOYEE. WOUND WAS CLEANSED WITH NORMAL SALINE, PACKED WITH PURACOL-PLUS PACKING THAT CAME FROM THE [facility]. COVERED WITH OIL EMULSION NON-ADHERENT DRESSING COVERED BY SACRUM OPTIFOAM. PRN MORPHINE DOSE WAS ADMINISTERED 20 MINS BEFORE DRESSING CHANGE. PT IS NOW ROLLED ON THE RIGHT SIDE PROPPED BY PILLOW IN HF. PT IS WEARING NASAL CANULA AND O2 SATURATION IS AT 98%. NAD IS NOTED AT THIS TIME.
--- NOTE | 2021-02-06 19:45 | NUR ---
PT AWAKE LAYING IN BED WITH EYES OPEN WITH NO S/S OF ACUTE DISTRESS NOTED, O2 AT 3LPM VIA NC, BARAJAS PATENT, 20G IV INTACT TO R FA WITH NS INFUSING AT 125ML/HR. RESPIRATORY AT BEDSIDE SUCTIONING PT ORALLY PT COUGHING OFTEN WET RATTLING COUGH NOTED THAT IS PRODUCTIVE AT TIMES. DRESSING INTACT TO WOUND ON SACRUM, PEG TUBE INTACT, WILL MONITOR, RAILS UP X3, BED IN LOW POSITION, CALL LIGHT IN REACH.
[2021-02-06 20:00] VITALS: BP 92/46; TEMP 97.2
--- NOTE | 2021-02-06 20:50 | NUR ---
PT FOUND AWAKE LAYING IN BED WITH EYES OPEN LOOKING AROUND, PRODUCTIVE COUGH NOTED OFTEN WITH VERY THICK CREAM LIGHT BECKER COLORED SPUTUM NOTED WHEN PT SUCTIONED PO(NOTE PT DOES HOLD YANKAUER IN L HAND AND SUCTION SELF PRN). PT'S FACE CLEANED WITH WARM CLOTH DUE TO SPUTUM ON PT'S FACE, NOTE SPUTUM IN ROOF OF PT'S MOUTH HIDE OR SKIN BUFFER ATTEMPTED TO GIVE ORAL CARE WITH MOUTH SWAB BUT AFTER A FEW SECONDS PT BIT DOWN ON SWAB WOULD NOT ALLOW HIDE OR SKIN BUFFER TO FINISH ORAL CARE. HOB REMAINS ELEVATED, O2 AT 4 LPM VIA NC. NO RESIDUAL NOTED VIA PEG TUBE, GAVE NIGHT MEDICATION CRUSHED VIA PEG ALONG WITH 1 CAN OF 2 ABI HN FEEDING WITH EQUAL PARTS WATER FLUSHING BEFORE AND AFTER WITH 60ML OF WATER. FEET ELEVATED ON PILLOW, HOB REMAINS ELEVATED DUE TO PEG FEEDER PT. PT DOES SQUEEZE HIDE OR SKIN BUFFER'S HAND WHEN INSTRUCTED TO AND WILL ALSO HOLD ON TO SIDE RAIL TO ASSIST STAFF IN TURNING HIM. RAILS UP X3, CALL LIGHT IN REACH, BED IN LOW POSITION.
[2021-02-07] VITALS (7 sets, daily range): BP systolic 101–119; BP diastolic 53–64; TEMP 97.1–99.7
[2021-02-07 00:47] LABS: PLATELET COUNT 213 K/uL (142-355)
--- NOTE | 2021-02-07 01:30 | NUR ---
RESTING IN BED WITH EYES CLOSED AND HOB ELEVATED, NO S/S OF PAIN OR ACUTE DISTRESS NOTED, RESP RATE NONLABORED, O2 IN USE VIA NC, 16F BARAJAS PATENT DRAINING TO BEDSIDE, PEG TUBE INTACT TO UPPER ABD, 20G IV INTACT TO R FA WITH NO PROBLEMS NOTED TO SITE AND NS INFUSING AT 125ML/HR, PT BEING TURNED OFTEN TO PREVENT SKIN ISSUES AND ALSO DUE TO PT HAS CHRONIC SACRAL WOUND WITH DRESSING INTACT, FEET ELEVATED ON PILLOW. WILL MONITOR, RAILS UP, BED IN LOW POSITION, CALL LIGHT IN REACH.
--- NOTE | 2021-02-07 01:37 | NUR ---
VANCOMYCIN TROUGH STATUS CHECKED AND IS "PENDING".
--- NOTE | 2021-02-07 02:05 | NUR ---
VANCOMYCIN TROUGH STATUS STILL "PENDING" IN COMPUTER. WILL CALL LAB ABOUT RESULTS.
--- NOTE | 2021-02-07 02:31 | NUR ---
SPOKE TO LAB ABOUT VANCOMYCIN TROUGH RESULTS, INFORMED THAT THE QC WAS BEING RUN IN LAB AT THIS TIME AND THAT LAB WOULD CALL CLINICAL LABORATORY AIDE BACK WITH RESULTS.
--- NOTE | 2021-02-07 02:40 | NUR ---
VANCOMYCIN TROUGH RESULTS BACK, RESULT 11.8, WILL GIVE MEDICATION.
--- NOTE | 2021-02-07 03:02 | NUR ---
PT RESTING IN BED WITH EYES CLOSED, NO S/S OF PAIN OR DISTRESS NOTED, RESP RATE NONLABORED, O2 IN USE VIA NC, BARAJAS PATENT DRAINING TO BEDSIDE, IV INTACT TO R FA WITH NS INFUSING AT 125ML/HR, FEET ELEVATED ON PILLOW. AROUSES BRIEFLY LOOKING AT FILM BOOKER. REPOSITIONED IN BED, HOB REMAINS ELEVATED, PEG TUBE INTACT. WILL MONITOR CLOSELY, RAILS UP X3, CALL LIGHT IN REACH, BED IN LOW POSITION.
[2021-02-07 04:01] LABS: POTASSIUM 3.9 mmol/L (3.6-5.2)
--- NOTE | 2021-02-07 09:30 | NUR ---
PATIENT SUCTIONED. PATIENT TOLERATED WELL. NAD NOTED.
--- NOTE | 2021-02-07 15:00 | NUR ---
PATIENT GIVEN ONE CAN OF 2 ABI HN FORMULA MIXED WITH EQUAL PARTS OF WATER. PATIENT HAD NO RESIDUAL. 60 ML FLUSHED BEFORE AND AFER FEEDING FOR A TOTAL OF 667ML. PATIENT TOLERATED WELL. PATIENT HOB ELEVATED TO 45 DEGREES. NAD NOTED. WILL CONTINUE TO MONITOR.
--- NOTE | 2021-02-07 17:00 | NUR ---
SACRAL DRESSING CHANGED PER MD ORDERS. PEG TUBE DRESSING CHANGED PER MD ORDERS. MOUTH CARE PROVIDED AND PATIENT SUCTIONED. LINENS AND BRIEF CHANGED. PATIENT TOLERATED WELL. NAD NOTED. BED IN LOWEST POSITION. WILL CONTINUE TO MONITOR. SACRAL WOUND CLEANSED WITH NORMAL SALINE, PACKED WITH PURICAL, COVERED WITH ADAPTIC GAUZE, AND COVERED WITH AN OPTIFOAM SACRAL DRESSING.
--- NOTE | 2021-02-07 21:10 | NUR ---
PT SITTING UP IN A HIGH FOWLERS POSITION WITH NS INFUSING AT 125 ML/HR AND PT ON 4LPM NC. NAD NOTED AT THIS TIME. 10 ML RESIDUAL NOTED AT THIS VIA PEG TUBE. PT GIVEN PM MED VIA PEG TUBE AT THIS TIME. FLUSHED 60 ML OF WATER BEFORE AND AFTER. PT TOLERATED WELL. AFTER MEDICATION ADMINISTRATION RESIDUAL NOTED AT 50 ML. HELD FEEDING DUE TO RESIDUAL VOLUME OF 50ML AT THIS TIME.
--- NOTE | 2021-02-07 22:00 | NUR ---
2 ABI PROTEIN DENSE NUTRITION MIXED WITH EQUAL AMOUNT OF WATER GIVEN AT THIS TIME VIA PEG TUBE. PT TOLERATED WELL. FLUSHED WITH 60 ML OF WATER BEFORE AND AFTER FEEDING. NAD NOTED AND PT SITTING IN A HIGH-FOWLERS POSITION IN LOWEST POSITTION.
[2021-02-08 03:53] VITALS: BP 122/64; TEMP 98.3
--- NOTE | 2021-02-08 09:20 | NUR ---
PATIENT GRIMACING AND MOANING. PATIENT GIVEN PRN MORPHINE PER MD ORDERS. NAD NOTED. PATIENT RESTING COMFORTABLY. MORNING MEDICATIONS GIVEN VIA PEG TUBE WITH 60 ML FLUSH BEFORE AND AFTER MEDICATION ADMINISTRATION FOR A TOTAL OF 180 ML. PATIENT TOLERATED WELL. HOB ELEVATED TO 45 DEGREES. PATIENT REQUIRES NO SUCTION AT THIS TIME.
--- NOTE | 2021-02-08 12:00 | NUR ---
GRINDER DRESSER SPOKE WITH NURSE ON [facility]. ADVISED THEM THAT WE WERE PREPARING PATIENT FOR DISCHARGE. PATIENT WOULD BE READY TO TRANSFER SOON. PHARMACY IS AWARE OF TRANSFER. ANTIBIOTICS TO BE SENT TO [facility]. PATIENT'S NURSE AT [facility] IS AT LUNCH. WILL CALL FOR REPORT SHORTLY.
--- NOTE | 2021-02-08 12:43 | NUR ---
ATTEMPTED TO CALL REPORT FOR PATIENT. NURSE WAS UNAVAILABLE. WILL TRY AGAIN.
--- NOTE | 2021-02-08 12:58 | NUR ---
ATTEMPTED TO CALL REPORT FOR PATIENT TO [facility]. NURSE WAS ON THE FLOOR AND UNAVAILBLE. PLACED A CALL TO JENNA. SHE STATED THAT I SHOULD RECEIVE A CALL SHORTLY.
--- NOTE | 2021-02-08 13:08 | NUR ---
REPORT GIVEN TO MAGGIE AT [facility]. TRANSPORT TO BE CALLED TO TRANSPORT PATIENT.
--- NOTE | 2021-02-08 13:44 | NUR ---
625 ML DRAINED FROM BARAJAS BAG. 16 FR BARAJAS DC WITH TIP INTACT. 10 ML RECEIVED FROM [facility] BEFORE REMOVAL. PATIENT TOLERATED WELL. URINE WAS YELLOW WITH SEDIMENT AND A MILD ODOR. PATIENT PLACED IN A BRIEF.
--- NOTE | 2021-02-08 16:00 | NUR ---
PATIENT DISCHARGED TO [facility]. PATIENT ORDERS TO BE FAXED OVER.
== END 2021-02-08 15:50 | DRG 177 ==
LOC: ED 09:39 → MED/SURG 10:30
PROVIDERS: Hospitalist; ADMIT Internal Medicine; ATTEND Internal Medicine
DX: J15.5 Pneumonia due to Escherichia coli (principal); L89.154 Pressure ulcer of sacral region, stage 4; N39.0 Urinary tract infection, site not specified; G82.20 Paraplegia, unspecified; B96.20 Unspecified Escherichia coli [E. coli] as the cause of diseases classified elsewhere; I69.391 Dysphagia following cerebral infarction; R13.19 Other dysphagia; Z86.16 Personal history of COVID-19; Z93.1 Gastrostomy status; E78.49 Other hyperlipidemia; I10 Essential (primary) hypertension
CPT/HCPCS: 36415; 36600; 51702; 80048; 80053; 80202; 81000; 82550; 82805; 83605; 83880; 84484; 85027; 85610; 85730; 87040; 87077; 87086; 87088; 87186; 87502; 87635; 87651; 93005; 94640; 94664; 94760; 96360; 96365; 96366; 96375; 99284; J0132; J1100; J1650; J2185; J2270; J2405; J2543; J3370; J3490; U0003